=== PATIENT | male | born 1950 | race Caucasian/White ===

== ENCOUNTER 2018-02-21 19:32 | Inpatient (IN) | payer OTHER ==
--- NOTE | 2018-02-21 20:17 | PDOC ---
History of Present Illness <Scar Griffin - Last Filed: 02/21/18 21:49> - General History Source: Patient, Family (nephew) Exam Limitations: No Limitations - History of Present Illness Initial Comments: 02/21/18 21:01 The patient is a 67 year old male with history of alcohol dependence, cirrhosis who presents to the ED with a laceration to his occipital scalp. The patient is accompanied by his nephew at bedside. Nephew reports that the patient has a history of alcohol abuse. This evening he became intoxicated and fell, hitting the back of his head. No loss of consciousness. Patient is intoxicated and unable to provide remainder of history. <Ariela Townsend - Last Filed: 02/22/18 01:14> <Shyla Abbott - Last Filed: 02/22/18 17:26> - General Chief Complaint: Alcohol intoxication Stated Complaint: HEAD LACERATION Time Seen by Provider: 02/21/18 19:45 Past History <Scar Griffin - Last Filed: 02/21/18 21:49> <Ariela Townsend - Last Filed: 02/22/18 01:14> - Past Medical History COPD: No Psychiatric Problems: Yes (DEPRESSION) Other medical history: HEP C - Suicide/Smoking/Psychosocial Hx Smoking History: Current every day smoker Number of Cigarettes Smoked Daily: 20 Information on smoking cessation initiated: No Hx Alcohol Use: Yes (vodka) Drug/Substance Use Hx: No <Shyla Abbott - Last Filed: 02/22/18 17:26> - Past Medical History Allergies/Adverse Reactions: Allergies Allergy/AdvReac Type Severity Reaction Status Date / Time No Known Allergies Allergy Verified 02/21/18 19:37 Home Medications: Ambulatory Orders NK [No Known Home Medication] 02/22/18 Review of Systems - Review of Systems Able to Perform ROS?: No Comments:: 02/21/18 21:04 Patient is intoxicated and unable to provide ROS. <Ariela Towsnend - Last Filed: 02/22/18 01:14> *Physical Exam - Vital Signs Last Vital Signs Temp Pulse Resp BP Pulse Ox 80 16 126/78 97 02/21/18 19:37 02/21/18 19:37 02/21/18 19:37 02/21/18 19:37 <Scar Griffin - Last Filed: 02/21/18 21:49> - Vital Signs Last Vital Signs Temp Pulse Resp BP Pulse Ox 80 16 126/78 97 02/21/18 19:37 02/21/18 19:37 02/21/18 19:37 02/21/18 19:37 - Physical Exam Comments: 02/22/18 01:10 GENERAL: Awake, clinically intoxicated. HEAD: Laceration as noted in SKIN. EYES: PERRLA, EOMI, sclera anicteric, conjunctiva clear ENT: Auricles normal inspection, nares patent. Moist mucosa NECK: Normal ROM, supple, no JVD, or masses LUNGS: Breath sounds equal, clear to auscultation bilaterally. No wheezes, and no crackles HEART: Regular rate and rhythm, normal S1 and S2, no murmurs, rubs or gallops ABDOMEN: Soft, nontender, normoactive bowel sounds. No guarding, no rebound. No masses EXTREMITIES: Normal range of motion, no edema. No clubbing or cyanosis. No cords, erythema, or tenderness NEUROLOGICAL: Alert and oriented x 3. Face is symmetric. Unsteady gait, but able to move all extremities. SKIN: Warm, Dry, normal turgor. +7.5 cm superficial laceration to the occipital scalp. <Ariela Townsend - Last Filed: 02/22/18 01:14> - Vital Signs Last Vital Signs Temp Pulse Resp BP Pulse Ox 80 16 126/78 97 02/21/18 19:37 02/21/18 19:37 02/21/18 19:37 02/21/18 19:37 <Shyla Abbott - Last Filed: 02/22/18 17:26> Procedures - Laceration/Wound Repair Head Wound Length: 5.0 to 7.5 cm Wound Explored: clean Wound's Depth, Shape: superficial Irrigated w/ Saline: Yes Betadine Prep: No Wound Repaired With: [place] Number of Sutures: 11 <Scar Griffin - Last Filed: 02/21/18 21:49> Medical Decision Making - Medical Decision Making 02/21/18 22:[address], read and reviewed by Dr. Nash. Impression: 1. No acute intracranial hemorrhage, mass effect, hydrocephalus or calvarial fracture. 2. Chronic right maxillary sinus disease as described. Laceration repair by resident Scar Griffin. Patient left stretcher and experienced another fall. Will administer 5 Haldol and 2 Ativan. <Ariela Townsend - Last Filed: 02/22/18 01:14> - Medical Decision Making 02/21/18 20:43 67-year-old male brought in by ambulance for intoxication and scalp laceration. He is accompanied by his nephew who states he has a long history of alcoholism. Patient lives in an apt Past medical history hepatitis C Patient has a large occipital laceration and is intoxicated Patient has had, closure of scalp laceration 02/21/18 21:45 CAT scan of the head is negative for any acute intracranial pathology. There are NO signs of acute infarction, subdural hematoma or hemorrhage, mass effect or edema 02/21/18 23:44 -the patient had another fall in his room. It was a witnessed fall onto his buttocks. This time he fell on his buttocks, but did not hit his head. He is too inebriated to be discharged at this time and will be kept until it was safe to go home <Shyla Abbott - Last Filed: 02/22/18 17:26> *DC/Admit/Observation/Transfer <Scar Griffin - Last Filed: 02/21/18 21:49> - Attestations Scribe Attestion: 02/21/18 21:04 Documentation prepared by Ariela Townsend, acting as medical receptionist biller for Shyla Abbott MD. <Ariela Townsend - Last Filed: 02/22/18 01:14> <Shyla Abbott - Last Filed: 02/22/18 17:26> Diagnosis at time of Disposition: Fall, Head injury - Discharge Dispostion Condition at time of disposition: Stable
[2018-02-21] MEDS ORDERED: HALOPERIDOL LACTATE 5 MG/ML IM ONE (21:58)
[2018-02-21] MEDS ORDERED: HALOPERIDOL LACTATE 5 MG/ML ONE (22:05)
[2018-02-21] MEDS ORDERED: LORazepam 2 MG/ML SDV VIAL ONE (22:06)
--- NOTE | 2018-02-22 06:14 | PDOC ---
*Physical Exam - Vital Signs Last Vital Signs Temp Pulse Resp BP Pulse Ox 80 16 126/78 97 02/21/18 19:37 02/21/18 19:37 02/21/18 19:37 02/21/18 19:37 ED Treatment Course - Medications Given in the ED: ED Medications Discontinued Medications Generic Name Dose Route Start Last Admin Trade Name Radhika PRN Reason Stop Dose Admin Diphenhydramine HCl 25 mg 02/21/18 21:59 02/21/18 22:08 Benadryl Injection - IM 02/21/18 22:00 25 mg ONCE ONE Administration Haloperidol 5 mg 02/21/18 21:58 02/21/18 22:08 Haldol Injection (Fast Acting) - IM 02/21/18 21:59 5 mg ONCE ONE Administration Lorazepam 2 mg 02/21/18 21:58 02/21/18 22:08 Ativan Injection - IM 02/21/18 21:59 2 mg ONCE ONE Administration Medical Decision Making - Medical Decision Making 02/22/18 06:12 Pt reassessed. He feels more sober and alert now. Pt has 11 demetri. I had called the patient's nephew Guille who states that he will sweet pickled fruit maker the patient around 10 am. 02/22/18 06:14 Will sign out to Dr. Garcia for further management and disposition. *DC/Admit/Observation/Transfer Diagnosis at time of Disposition: Fall Qualifiers: Encounter type: initial encounter Qualified Code(s): W19.XXXA - Unspecified fall, initial encounter Head injury Qualifiers: Encounter type: initial encounter Qualified Code(s): S09.90XA - Unspecified injury of head, initial encounter - Discharge Dispostion Condition at time of disposition: Stable Admit: No - Referrals - Patient Instructions Printed Discharge Instructions: DI for Closed Head Injury, DI for Laceration Repair -- Demetri Additional Instructions: You have had a CAT scan that showed no acute bleeding. 11 demetri was placed in the scalp. You may shower but do not scrub the wound. Allow warm soapy water to run over the wound. Please return to the emergency department in 7 days to remove the demetri. If he notices any fever or pus from the laceration site, please return to the emergency department for further evaluation. - Post Discharge Activity
--- NOTE | 2018-02-22 08:21 | PDOC ---
*Physical Exam - Vital Signs Last Vital Signs Temp Pulse Resp BP Pulse Ox 97.7 F 77 18 131/62 97 02/22/18 06:20 02/22/18 06:20 02/22/18 06:20 02/22/18 06:20 02/22/18 06:20 - Physical Exam Comments: 02/22/18 08:20 Vital signs normal Asleep now after medications Scalp laceration repaired Cardiopulmonary exam is normal ED Treatment Course - Medications Given in the ED: ED Medications Discontinued Medications Generic Name Dose Route Start Last Admin Trade Name Radhika PRN Reason Stop Dose Admin Diphenhydramine HCl 25 mg 02/21/18 21:59 02/21/18 22:08 Benadryl Injection - IM 02/21/18 22:00 25 mg ONCE ONE Administration Haloperidol 5 mg 02/21/18 21:58 02/21/18 22:08 Haldol Injection (Fast Acting) - IM 02/21/18 21:59 5 mg ONCE ONE Administration Lorazepam 2 mg 02/21/18 21:58 02/21/18 22:08 Ativan Injection - IM 02/21/18 21:59 2 mg ONCE ONE Administration Medical Decision Making - Medical Decision Making 02/22/18 08:20 Received signout on this 67-year-old male who presented with severe intoxication , aggressive behavior requiring restraints. CT head showed no TBI, scalp laceration was repaired. Patient remains hemodynamically stable and slowly clinically improving/sobering , awaiting disposition with his family later this morning. We'll place patient on observation to continue monitoring alcohol intoxication and closed head injury, accepted for med/surg by Dr. Sanders. 02/22/18 10:34 ambulating more steadily, clinically sober. will arrange for pickup by family members. 02/22/18 11:17 now developing sxs of withdrawal, b/l hand tremors, unable to stand requiring assistance just to get dressed at the bedside. discussed with nephew - has had worsening gait instability but this is markedly worse over the last few days. Will need admission as not medically cleared for detox. Discussed with [facility] team, accepted for inpatient med/surg by Dr. sanders *DC/Admit/Observation/Transfer Diagnosis at time of Disposition: Fall Qualifiers: Encounter type: initial encounter Qualified Code(s): W19.XXXA - Unspecified fall, initial encounter Head injury Qualifiers: Encounter type: initial encounter Qualified Code(s): S09.90XA - Unspecified injury of head, initial encounter - Discharge Dispostion Condition at time of disposition: Stable Admit: Yes - Referrals - Patient Instructions - Post Discharge Activity
--- NOTE | 2018-02-22 08:53 | HP ---
CHIEF COMPLAINT: "i fell" PCP: HISTORY OF PRESENT ILLNESS: This is a 67 yo m with PMH of EtOH abuse, Hep C, cirrhosis, depression, who presented to the ED in an intoxicated disorderly state, with an occipital scalp laceration. Patients nephew at the time reported that he fell backwards, hitting his head. Due to violent behavior, patient was medically sedated in ED. Head CT was negative for acute pathology. He received demetri to close his wound. He is now aao x3, NAD. He states that he drank a pint of vodka last night and remembers falling. he drinks several times a week. He recognizes that he needs to quit and has attempted rehab before, however, wants to go directly home and does not wist ho go to rehab right away. ER course was notable for: (1)head ct (2)laceration repair (3)benadryl, griseldal, ativan Recent Travel: denies PAST MEDICAL HISTORY: as above PAST SURGICAL HISTORY: as above Social History: Smokin cigs/day Alcohol: 1 pint vodka 3 days a week Drugs: denies Family History: noncontributory Allergies No Known Allergies Allergy (Verified 02/21/18 19:37) HOME MEDICATIONS: Home Medications Medication Instructions Recorded NK [No Known Home Medication] 02/22/18 REVIEW OF SYSTEMS CONSTITUTIONAL: Absent: fever, chills, diaphoresis, generalized weakness HEENT: Absent: rhinorrhea, nasal congestion, throat pain, visual changes CARDIOVASCULAR: Absent: chest pain, syncope, palpitations RESPIRATORY: Absent: cough, shortness of breath, dyspnea with exertion GASTROINTESTINAL: Absent: abdominal pain, abdominal distension, nausea, vomiting, diarrhea, constipation GENITOURINARY: Absent: dysuria MUSCULOSKELETAL: Absent: back pain, neck pain SKIN: Absent: rash HEMATOLOGIC/IMMUNOLOGIC: Absent: easy bleeding, easy bruising ENDOCRINE: Absent: unexplained weight gain, unexplained weight loss NEUROLOGIC: Absent: headache, focal weakness or paresthesias PSYCHIATRIC: Absent: anxiety PHYSICAL EXAMINATION Vital Signs - 24 hr 02/21/18 02/22/18 19:37 06:20 Temperature 97.7 F Pulse Rate 80 Pulse Rate [ 77 Left Apical] Respiratory 16 18 Rate Blood Pressure 126/78 Blood Pressure 131/62 [Right Arm] O2 Sat by Pulse 97 97 Oximetry (%) GENERAL: Awake, alert, and fully oriented, in no acute distress. HEAD: Normal with no signs of trauma. EYES: Pupils equal, round and reactive to light, extraocular movements intact, sclera anicteric, conjunctiva clear. No lid lag. EARS, NOSE, THROAT: Moist mucous membranes. NECK: Normal range of motion, supple LUNGS: Breath sounds equal, clear to auscultation bilaterally. HEART: Regular rate and rhythm, normal S1 and S2, grade 3 systolic murmur ABDOMEN: Soft, nontender, not distended, normoactive bowel sounds, no guarding, no rebound, no masses. MUSCULOSKELETAL: No CVA tenderness. UPPER EXTREMITIES: 2+ pulses, warm, well-perfused. No cyanosis. No clubbing. No peripheral edema. LOWER EXTREMITIES: 2+ pulses, warm, well-perfused. No calf tenderness. No peripheral edema. NEUROLOGICAL: Cranial nerves II-XII intact. Normal speech. PSYCHIATRIC: Cooperative. Good eye contact. Appropriate mood and affect. SKIN: Warm, dry ASSESSMENT/PLAN: This is a 67 yo m with PMH of EtOH abuse, Hep C, cirrhosis, depression, who presented to the ED in an intoxicated disorderly state, with an occipital scalp laceration. Acute EtOH intoxication -currently sober -and cessation counseling; recommended detox/rehab especially in setting of present cirrhosis Occipital scalp laceration -CT head unremarkable for acute pathology -s/p repair with demetri -f/u in 2 w with PCP to remove demetri Smoker -recommend cessation Dispo: stable to d/c home. Problem List - Problem (1) Acute alcohol intoxication Code(s): F10.929 - ALCOHOL USE, UNSPECIFIED WITH INTOXICATION, UNSPECIFIED (2) Alcohol abuse Code(s): F10.10 - ALCOHOL ABUSE, UNCOMPLICATED (3) Alcohol abuse counseling and surveillance Code(s): Z71.41 - ALCOHOL ABUSE COUNSELING AND SURVEILLANCE OF ALCOHOLIC (4) Fall Code(s): W19.XXXA - UNSPECIFIED FALL, INITIAL ENCOUNTER Qualifiers: Encounter type: initial encounter Qualified Code(s): W19.XXXA - Unspecified fall, initial encounter (5) Head injury Code(s): S09.90XA - UNSPECIFIED INJURY OF HEAD, INITIAL ENCOUNTER Qualifiers: Encounter type: initial encounter Qualified Code(s): S09.90XA - Unspecified injury of head, initial encounter Visit type - Emergency Visit Emergency Visit: Yes ED Registration Date: 02/22/18 Care time: The patient presented to the Emergency Department on the above date and was hospitalized for further evaluation of their emergent condition. - New Patient This patient is new to me today: Yes Date on this admission: 02/22/18 - Critical Care Critical Care patient: No Hospitalist Screening - Colonoscopy Questionnaire Colonoscopy Questionnaire: Colonoscopy Questionnaire - Patient: 50 - 75 years old and never had a screening colonoscopy: Yes History of colon or rectal polyps, or CA: No History of IBD, Crohn's disease or UC: No History of abdominal radiation therapy as a child: No - Relative: 1 with colon or rectal CA, or polyps at age 60 or younger: No Colon or rectal CA diagnosed at age 45 or younger: No Multiple relatives with colon or rectal CA: No - Outcome: Screening Result: Positive Screen
--- NOTE | 2018-02-22 10:14 | PN ---
Teaching Attending Note Name of Resident: Betzaida Bingham ATTENDING PHYSICIAN STATEMENT I saw and evaluated the patient. I reviewed the resident's note and discussed the case with the resident. I agree with the resident's findings and plan as documented. SUBJECTIVE: This is a 67 year old man with a history of cirrhosis, alcohol abuse , hepatitis C, depression who comes to the ED after falling and hitting his head. As per family, while he was intoxicated, he fell backwards. He hit his head sustaining a laceration which was stapled in the ED. He admits to drinking one pint of vodka last night, and to drinking several times a week. He is currently refusing detox/rehab. OBJECTIVE: Vital Signs Period Temp Pulse Resp BP Sys/Suggs Pulse Ox Last 24 Hr 97.7 F 77-81 15-18 126-131/62-81 97-99 HEART: S1S2, RRR LUNGS: Clear ABDOMEN: Soft, non-tender, non-distended, normal BS EXTREMITIES: No edema Home Medications Medication Instructions Recorded NK [No Known Home Medication] 02/22/18 ASSESSMENT AND PLAN: This is a 67 year old man with a history of cirrhosis, alcohol abuse, hepatitis C, depression who presented to the ED after falling and hitting his head while intoxicated. 1. Alcohol intoxication - Resolved 2. s/p fall with occipital scalp laceration - Laceration stapled - Head CT negative 3. Continuous alcohol dependence - No signs of withdrawal - Abstinence discussed - Refusing detox/rehab 4. Nicotine dependence - Cessation discussed 5. Cirrhosis 6. Hepatitis C 7. Depression 8. Ok for discharge home with outpatient follow-up
--- NOTE | 2018-02-22 10:39 | DS ---
Physical Exam: SUBJECTIVE: Patient seen and examined Patient resting in bed NAD, afebrile hemodynamically stable. AAOx3, no complaints. OBJECTIVE: Vital Signs Period Temp Pulse Resp BP Sys/Suggs Pulse Ox Last 24 Hr 97.7 F 77-81 15-18 126-131/62-81 97-99 PHYSICAL EXAM GENERAL: Awake, alert, and fully oriented, in no acute distress. HEAD: Normal with no signs of trauma. EYES: Pupils equal, round and reactive to light, extraocular movements intact, sclera anicteric, conjunctiva clear. No lid lag. EARS, NOSE, THROAT: Moist mucous membranes. NECK: Normal range of motion, supple LUNGS: Breath sounds equal, clear to auscultation bilaterally. HEART: Regular rate and rhythm, normal S1 and S2, grade 3 systolic murmur ABDOMEN: Soft, nontender, not distended, normoactive bowel sounds, no guarding, no rebound, no masses. MUSCULOSKELETAL: No CVA tenderness. UPPER EXTREMITIES: 2+ pulses, warm, well-perfused. No cyanosis. No clubbing. No peripheral edema. LOWER EXTREMITIES: 2+ pulses, warm, well-perfused. No calf tenderness. No peripheral edema. NEUROLOGICAL: Cranial nerves II-XII intact. Normal speech. PSYCHIATRIC: Cooperative. Good eye contact. Appropriate mood and affect. SKIN: Warm, dry LABS HOSPITAL COURSE: Date of Admission:02/22/18 This is a 67 yo m with PMH of EtOH abuse, Hep C, cirrhosis, depression, who presented to the ED in an intoxicated disorderly state, with an occipital scalp laceration. Patients nephew at the time reported that he fell backwards, hitting his head. Due to violent behavior, patient was medically sedated in ED. Head CT was negative for acute pathology. He received demetri to close his wound. He is now aao x3, NAD. He recognizes that he needs to quit and has attempted rehab before, however, wants to go directly home and does not wist ho go to rehab right away. Date of Discharge: 02/22/18 Minutes to complete discharge: 35 Discharge Summary Reason For Visit: ALCOHOLIC INTOXICATION,INJURY OF HEAD Current Active Problems Acute alcohol intoxication (Acute) Alcohol abuse (Acute) Alcohol abuse counseling and surveillance (Acute) Fall (Acute) Head injury (Acute) Condition: Stable - Instructions Diet, Activity, Other Instructions: You have had a CAT scan that showed no acute bleeding. 11 demetri was placed in the scalp. You may shower but do not scrub the wound. Allow warm soapy water to run over the wound. Please return to the emergency department in 7 days to remove the demetri. If he notices any fever or pus from the laceration site, please return to the emergency department for further evaluation. We recommend that you refer to Rehab for alcohol cessation. [facility], Dr Kohler. Referrals: Sahil Kohler MD [Staff Physician] - Disposition: HOME - Home Medications Comprehensive Discharge Medication List: Ambulatory Orders NK [No Known Home Medication] 02/22/18 Problem List - Problems (1) Acute alcohol intoxication Code(s): F10.929 - ALCOHOL USE, UNSPECIFIED WITH INTOXICATION, UNSPECIFIED (2) Alcohol abuse Code(s): F10.10 - ALCOHOL ABUSE, UNCOMPLICATED (3) Alcohol abuse counseling and surveillance Code(s): Z71.41 - ALCOHOL ABUSE COUNSELING AND SURVEILLANCE OF ALCOHOLIC (4) Fall Code(s): W19.XXXA - UNSPECIFIED FALL, INITIAL ENCOUNTER Qualifiers: Encounter type: initial encounter Qualified Code(s): W19.XXXA - Unspecified fall, initial encounter (5) Head injury Code(s): S09.90XA - UNSPECIFIED INJURY OF HEAD, INITIAL ENCOUNTER Qualifiers: Encounter type: initial encounter Qualified Code(s): S09.90XA - Unspecified injury of head, initial encounter This patient is new to me today: No Emergency Visit: Yes ED Registration Date: 02/22/18 Care time: The patient presented to the Emergency Department on the above date and was hospitalized for further evaluation of their emergent condition. Critical Care patient: No - Discharge Referral Referred to [facility] Med P.C.: No
[2018-02-22 10:44] VITALS: BMI 23.0
[2018-02-22] MEDS ORDERED: chlordiazePOXIDE HCL 25 MG CAPSULE PO ONE (11:21)
--- NOTE | 2018-02-22 11:28 | HP ---
CHIEF COMPLAINT: "i fell" PCP: HISTORY OF PRESENT ILLNESS: This is a 67 yo m with PMH of EtOH abuse, Hep C, cirrhosis, depression, who presented to the ED in an intoxicated disorderly state, with an occipital scalp laceration. Patients nephew at the time reported that he fell backwards, hitting his head. Due to violent behavior, patient was medically sedated in ED. Head CT was negative for acute pathology. He received demetri to close his wound. He is now aao x3, NAD. He states that he drank a pint of vodka last night and remembers falling. he drinks several times a week. He recognizes that he needs to quit and has attempted rehab before. Reports some tremors, diaphoresis. ER course was notable for: (1)head ct (2)laceration repair (3)daija victoria atcaesar Recent Travel: denies PAST MEDICAL HISTORY: as above PAST SURGICAL HISTORY: as above Social History: Smokin cigs/day Alcohol: 1 pint vodka 3 days a week Drugs: denies Family History: noncontributory Allergies No Known Allergies Allergy (Verified 02/21/18 19:37) HOME MEDICATIONS: Home Medications Medication Instructions Recorded NK [No Known Home Medication] 02/22/18 REVIEW OF SYSTEMS CONSTITUTIONAL: Absent: fever, chills, diaphoresis, generalized weakness HEENT: Absent: rhinorrhea, nasal congestion, throat pain, visual changes CARDIOVASCULAR: Absent: chest pain, syncope, palpitations RESPIRATORY: Absent: cough, shortness of breath, dyspnea with exertion GASTROINTESTINAL: Absent: abdominal pain, abdominal distension, nausea, vomiting, diarrhea, constipation GENITOURINARY: Absent: dysuria MUSCULOSKELETAL: Absent: back pain, neck pain SKIN: Absent: rash HEMATOLOGIC/IMMUNOLOGIC: Absent: easy bleeding, easy bruising ENDOCRINE: Absent: unexplained weight gain, unexplained weight loss NEUROLOGIC: Absent: headache, focal weakness or paresthesias PSYCHIATRIC: Absent: anxiety PHYSICAL EXAMINATION Vital Signs - 24 hr 02/21/18 02/22/18 02/22/18 19:37 06:20 09:54 Temperature 97.7 F Pulse Rate 80 Pulse Rate [ 77 81 Left Apical] Respiratory 16 18 15 Rate Blood Pressure 126/78 Blood Pressure 131/62 130/81 [Right Arm] O2 Sat by Pulse 97 97 99 Oximetry (%) GENERAL: Awake, alert, and fully oriented, in no acute distress. HEAD: Normal with no signs of trauma. EYES: Pupils equal, round and reactive to light, extraocular movements intact, sclera anicteric, conjunctiva clear. No lid lag. EARS, NOSE, THROAT: Moist mucous membranes. NECK: Normal range of motion, supple LUNGS: Breath sounds equal, clear to auscultation bilaterally. HEART: Regular rate and rhythm, normal S1 and S2, grade 3 systolic murmur ABDOMEN: Soft, nontender, not distended, normoactive bowel sounds, no guarding, no rebound, no masses. MUSCULOSKELETAL: No CVA tenderness. UPPER EXTREMITIES: 2+ pulses, warm, well-perfused. No cyanosis. No clubbing. No peripheral edema. LOWER EXTREMITIES: 2+ pulses, warm, well-perfused. No calf tenderness. No peripheral edema. NEUROLOGICAL: Cranial nerves II-XII intact. Normal speech. PSYCHIATRIC: Cooperative. Good eye contact. Appropriate mood and affect. SKIN: Warm, dry ASSESSMENT/PLAN: This is a 67 yo m with PMH of EtOH abuse, Hep C, cirrhosis, depression, who presented to the ED in an intoxicated disorderly state, with an occipital scalp laceration. Acute EtOH intoxication, now in withdrawal -[facility] protocol -thiamine, folate, vitamins -Dr Kohler consult -cessation counseling; recommended detox/rehab especially in setting of present cirrhosis Occipital scalp laceration -CT head unremarkable for acute pathology -s/p repair with demetri -f/u in 2 w with PCP to remove demetri Smoker -recommend cessation FEN NS @ 75 lyts stable regular diet Dispo: adm m/s Problem List - Problem (1) Acute alcohol intoxication Code(s): F10.929 - ALCOHOL USE, UNSPECIFIED WITH INTOXICATION, UNSPECIFIED (2) Alcohol abuse Code(s): F10.10 - ALCOHOL ABUSE, UNCOMPLICATED (3) Alcohol abuse counseling and surveillance Code(s): Z71.41 - ALCOHOL ABUSE COUNSELING AND SURVEILLANCE OF ALCOHOLIC (4) Fall Code(s): W19.XXXA - UNSPECIFIED FALL, INITIAL ENCOUNTER Qualifiers: Encounter type: initial encounter Qualified Code(s): W19.XXXA - Unspecified fall, initial encounter (5) Head injury Code(s): S09.90XA - UNSPECIFIED INJURY OF HEAD, INITIAL ENCOUNTER Qualifiers: Encounter type: initial encounter Qualified Code(s): S09.90XA - Unspecified injury of head, initial encounter (6) Alcohol withdrawal Code(s): F10.239 - ALCOHOL DEPENDENCE WITH WITHDRAWAL, UNSPECIFIED Visit type - Emergency Visit Emergency Visit: Yes ED Registration Date: 02/22/18 Care time: The patient presented to the Emergency Department on the above date and was hospitalized for further evaluation of their emergent condition. - New Patient This patient is new to me today: No - Critical Care Critical Care patient: No Hospitalist Screening - Colonoscopy Questionnaire Colonoscopy Questionnaire: Colonoscopy Questionnaire - Patient: 50 - 75 years old and never had a screening colonoscopy: No History of colon or rectal polyps, or CA: No History of IBD, Crohn's disease or UC: No History of abdominal radiation therapy as a child: No - Relative: 1 with colon or rectal CA, or polyps at age 60 or younger: No Colon or rectal CA diagnosed at age 45 or younger: No Multiple relatives with colon or rectal CA: No - Outcome: Screening Result: Negative Screen
[2018-02-22] MEDS ORDERED: chlordiazePOXIDE HCL 25 MG CAPSULE PO PRN (11:33)
[2018-02-22] MEDS ORDERED: LORazepam 2 MG/ML SDV VIAL ONE (11:41)
[2018-02-22] MEDS: chlordiazePOXIDE HCL 25 MG CAPSULE PO SCH ×2 (12:01→17:34)
[2018-02-22] MEDS ORDERED: FOLIC ACID INJECTION - 1 MG, THIAMINE HCL 100 MG, MULTIVIT INJECTION ADULT 10 ML in SOD... IVPB ONE (12:30)
--- NOTE | 2018-02-22 14:33 | CONSULT ---
Consult Detox [facility] Reason for Current Admission/Consult: substance use Referred by:: krystina galvan - History History of Present Illness: 67 yo m w PMHx of alcoho use disorder, severe, was in treatment at [facility] in past, Hep C, cirrhosis, depression, who presented to the ED in an intoxicated with an occipital scalp laceration and admitted for inpateint detoxification from alcohol. drinks 1 pint alcohol daily and reports alcohol withdrwal sx when he deos not drink, no h/o seiaures, no DTs no SI at this time. tolerating libirum detox as ordered. Vital Signs - 24 hr 02/22/18 02/22/18 02/22/18 15:20 16:32 20:00 Temperature 97.6 F 98.2 F Pulse Rate 83 80 Pulse Rate [ 84 Right] Respiratory 18 18 18 Rate Blood Pressure 139/75 139/80 Blood Pressure 135/84 [Right Arm] O2 Sat by Pulse 99 Oximetry (%) 02/22/18 02/23/18 02/23/18 22:00 02:00 06:09 Temperature 98.3 F 98.4 F Pulse Rate 92 H 90 Pulse Rate [ Right] Respiratory 18 18 Rate Blood Pressure 133/58 Blood Pressure [Right Arm] O2 Sat by Pulse 98 Oximetry (%) 02/23/18 02/23/18 02/23/18 09:00 09:27 14:00 Temperature 98.7 F 98.7 F Pulse Rate 95 H Pulse Rate [ Right] Respiratory 18 Rate Blood Pressure 155/76 Blood Pressure [Right Arm] O2 Sat by Pulse 97 Oximetry (%) Laboratory Tests 02/23/18 02/23/18 02/23/18 07:45 07:45 07:45 WBC 3.1 L RBC 2.41 L Hgb 7.9 L Hct 23.1 L MCV 96.0 MCH 32.9 MCHC 34.2 RDW 16.7 H Plt Count 92 L MPV 9.3 PT with INR 13.20 H INR 1.17 H Sodium 138 Potassium 3.4 L Chloride 103 Carbon Dioxide 27 Anion Gap 8 BUN 19 H Creatinine 0.7 Creat Clearance w eGFR > 60 Random Glucose 97 Calcium 8.4 L Phosphorus 3.0 Magnesium 1.4 L Total Bilirubin 1.2 H AST 115 H ALT 44 Alkaline Phosphatase 102 Total Protein 6.8 Albumin 2.7 L Vitamin B12 Serum Folate 12 02/23/18 07:45 WBC RBC Hgb Hct MCV MCH MCHC RDW Plt Count MPV PT with INR INR Sodium Potassium Chloride Carbon Dioxide Anion Gap BUN Creatinine Creat Clearance w eGFR Random Glucose Calcium Phosphorus Magnesium Total Bilirubin AST ALT Alkaline Phosphatase Total Protein Albumin Vitamin B12 701 Serum Folate anemia, hypokalemia, hypomagensemia - History Source History Provided By: Patient, Medical Record, Caregiver Limitations to Obtaining History: No Limitations - Alcohol/Substance Use Hx Alcohol Use: Yes (vodka) - Current Drug/Alcohol Use Alcohol Route: Oral Frequency: Daily Amount used: 1 pint vodka Age of first use: 20 Date of Last Use: 02/21/18 - Significant Medical Findings: 67 yo m with h/o alcoho use diorder admitted intoxicted after a fall lacerating his scalp for ipatient medical detox from alcohol beause of alcohol withdrawal sx which he is tolerating well. CIWA Score - CIWA Score Nausea/Vomitin-Mild Nausea/No Vomiting Muscle Tremors: 1-None Visible, but [place] Anxiety: 1-Mildly Anxious Agitation: 0-Normal Activity Paroxysmal Sweats: 1-Minimal Palms Moist Orientation: 0-Oriented Tacttile Disturbances: 1-Very Mild Itch/Numbness Auditory Disturbances: 0-None Visual Disturbances: 0-None Headache: 1-Very Mild CIWA-Ar Total Score: 6 Assessment Plan - Diagnosis (1) Anemia Status: Chronic (2) Hypokalemia Status: Resolved (3) Hypomagnesemia Status: Resolved (4) Acute alcohol intoxication Status: Deleted (5) Alcohol abuse counseling and surveillance Status: Deleted (6) Alcohol dependence with uncomplicated withdrawal Status: Chronic (7) Fall Status: Acute Qualifiers: Encounter type: initial encounter Qualified Code(s): W19.XXXA - Unspecified fall, initial encounter (8) Head injury Status: Acute Qualifiers: Encounter type: initial encounter Qualified Code(s): S09.90XA - Unspecified injury of head, initial encounter - Plan Plan: chrt, imaging and labs reviewd. Paeint examined and hisotry taken. discussed care with medical team. REcommend: 1. libirum detox as ordered 2. fluid, vitamines. 3. anemia work up 4. patient does not appear to want inpatient rehab and former [facility] where he would liek to return to., not a candidate for [facility] due to his medical condition and does not appear able to participate in rehab at this time post detox. Sahil Kohler MD [phone] - Medication Detox Regimen/Protocol: Librium
[2018-02-23] MEDS: chlordiazePOXIDE HCL 25 MG CAPSULE PO SCH ×5 (00:19→22:33)
[2018-02-23 08:27] LABS: HEMATOCRIT 23.1 % (35.4-49); HEMOGLOBIN 7.9 GM/dL (11.7-16.9); MCH 32.9 pg (25.7-33.7); MCHC 34.2 g/dl (32.0-35.9); MEAN PLT VOLUME 9.3 fl (7.5-11.1); PLATELET COUNT 92 K/MM3 (134-434); RBC 2.41 M/mm3 (4.00-5.60); RDW 16.7 % (11.9-15.9); WHITE BLOOD COUNT 3.1 K/mm3 (4.0-10.0)
[2018-02-23 08:43] LABS: INR 1.17 (0.82-1.09); PROTHROMBIN TIME (PATIENT) 13.2 SEC (9.98-11.88)
[2018-02-23 08:57] LABS: ALBUMIN 2.7 g/dl (3.4-5.0); ANION GAP 8 (8-16); BILIRUBIN,TOTAL 1.2 mg/dL (0.2-1.0); BLOOD UREA NITROGEN 19 mg/dL (7-18); CALCIUM 8.4 mg/dL (8.5-10.1); CHLORIDE 103 mmol/L (98-107); CO2 27 mmol/L (21-32); CREATININE 0.7 mg/dL (0.7-1.3); GLUCOSE,RANDOM 97 mg/dL (74-106); MAGNESIUM 1.4 mg/dL (1.8-2.4); POTASSIUM 3.4 mmol/L (3.5-5.1); SGOT/AST 115 U/L (15-37); SGPT/ALT 44 U/L (12-78); SODIUM 138 mmol/L (136-145); TOT PROT 6.8 g/dl (6.4-8.2)
[2018-02-23 09:22] LABS: ALK PHOS 102 U/L (45-117)
[2018-02-23] MEDS ORDERED: ENOXAPARIN NA (PORCINE) 40 MG/0.4 ML DISP.SYRIN SQ SCH (10:00)
[2018-02-23] MEDS ORDERED: POTASSIUM CHLORIDE TABS 20 MEQ TABLET.ER (FP) PO ONE (11:00)
[2018-02-23] MEDS ORDERED: MAGNESIUM OXIDE 400 MG TABLET (FP) PO ONE (11:00)
--- NOTE | 2018-02-23 13:46 | PN ---
Physical Exam: SUBJECTIVE: Patient seen and examined No acute events overnight. Denies pain this morning. OBJECTIVE: Vital Signs Period Temp Pulse Resp BP Sys/Suggs Pulse Ox Last 24 Hr 97.6 F-98.7 F 80-95 18-18 133-155/58-84 97-99 GENERAL: Awake, alert, and fully oriented, in no acute distress. HEAD: Normal with no signs of trauma. +Scalp laceration EYES: Pupils equal, round and reactive to light, extraocular movements intact, sclera anicteric, conjunctiva clear. No lid lag. EARS, NOSE, THROAT: Moist mucous membranes. NECK: Normal range of motion, supple LUNGS: Breath sounds equal, clear to auscultation bilaterally. HEART: Regular rate and rhythm, normal S1 and S2, grade 3 systolic murmur ABDOMEN: Soft, nontender, not distended, normoactive bowel sounds, no guarding, no rebound, no masses. MUSCULOSKELETAL: No CVA tenderness. UPPER EXTREMITIES: 2+ pulses, warm, well-perfused. No cyanosis. No clubbing. No peripheral edema. LOWER EXTREMITIES: 2+ pulses, warm, well-perfused. No calf tenderness. No peripheral edema. NEUROLOGICAL: Cranial nerves II-XII intact. Normal speech. PSYCHIATRIC: Cooperative. Good eye contact. Appropriate mood and affect. SKIN: Warm, dry Laboratory Results - last 24 hr 02/23/18 02/23/18 02/23/18 07:45 07:45 07:45 WBC 3.1 L RBC 2.41 L Hgb 7.9 L Hct 23.1 L MCV 96.0 MCH 32.9 MCHC 34.2 RDW 16.7 H Plt Count 92 L MPV 9.3 PT with INR 13.20 H INR 1.17 H Sodium 138 Potassium 3.4 L Chloride 103 Carbon Dioxide 27 Anion Gap 8 BUN 19 H Creatinine 0.7 Creat Clearance w eGFR > 60 Random Glucose 97 Calcium 8.4 L Phosphorus 3.0 Magnesium 1.4 L Total Bilirubin 1.2 H AST 115 H ALT 44 Alkaline Phosphatase 102 Total Protein 6.8 Albumin 2.7 L Vitamin B12 Serum Folate 12 02/23/18 07:45 WBC RBC Hgb Hct MCV MCH MCHC RDW Plt Count MPV PT with INR INR Sodium Potassium Chloride Carbon Dioxide Anion Gap BUN Creatinine Creat Clearance w eGFR Random Glucose Calcium Phosphorus Magnesium Total Bilirubin AST ALT Alkaline Phosphatase Total Protein Albumin Vitamin B12 701 Serum Folate Active Medications Generic Name Dose Route Start Last Admin Trade Name Freq PRN Reason Stop Dose Admin Chlordiazepoxide HCl 25 mg 02/22/18 11:33 Librium - PO Q4H PRN WITHDRAWAL(CONT SUBST) Chlordiazepoxide HCl 25 mg 02/23/18 11:00 02/23/18 10:54 Librium - PO 25 mg [id number] TEMITOPE Administration ASSESSMENT/PLAN: This is a 67 yo m with PMH of EtOH abuse, Hep C, cirrhosis, depression, who presented to the ED in an intoxicated disorderly state, with an occipital scalp laceration. Acute EtOH intoxication, now in withdrawal -CIWA protoco--librium -thiamine, folate, vitamins, b12 -Dr Kohler consult Occipital scalp laceration -CT head unremarkable for acute pathology -s/p repair with deemtri -f/u in 2 w with PCP to remove demetri Smoker -recommend cessation FEN No fluids lyts stable regular diet Visit type - Emergency Visit Emergency Visit: Yes ED Registration Date: 02/22/18 Care time: The patient presented to the Emergency Department on the above date and was hospitalized for further evaluation of their emergent condition. - New Patient This patient is new to me today: Yes Date on this admission: 02/23/18 - Critical Care Critical Care patient: No
--- NOTE | 2018-02-23 13:52 | PN ---
Teaching Attending Note Name of Resident: Barney Gibson ATTENDING PHYSICIAN STATEMENT I saw and evaluated the patient. I reviewed the resident's note and discussed the case with the resident. I agree with the resident's findings and plan as documented. SUBJECTIVE: Patient has no complaints. OBJECTIVE: Vital Signs Period Temp Pulse Resp BP Sys/Suggs Pulse Ox Last 24 Hr 97.6 F-98.7 F 80-95 18-18 133-155/58-84 97-99 GENERAL: Tremulous HEART: S1S2, RRR LUNGS: Clear ABDOMEN: Soft, non-tender, non-distended, normal BS EXTREMITIES: No edema Laboratory Results - last 24 hr 02/23/18 02/23/18 02/23/18 07:45 07:45 07:45 WBC 3.1 L RBC 2.41 L Hgb 7.9 L Hct 23.1 L MCV 96.0 MCH 32.9 MCHC 34.2 RDW 16.7 H Plt Count 92 L MPV 9.3 PT with INR 13.20 H INR 1.17 H Sodium 138 Potassium 3.4 L Chloride 103 Carbon Dioxide 27 Anion Gap 8 BUN 19 H Creatinine 0.7 Creat Clearance w eGFR > 60 Random Glucose 97 Calcium 8.4 L Phosphorus 3.0 Magnesium 1.4 L Total Bilirubin 1.2 H AST 115 H ALT 44 Alkaline Phosphatase 102 Total Protein 6.8 Albumin 2.7 L Vitamin B12 Serum Folate 12 02/23/18 07:45 WBC RBC Hgb Hct MCV MCH MCHC RDW Plt Count MPV PT with INR INR Sodium Potassium Chloride Carbon Dioxide Anion Gap BUN Creatinine Creat Clearance w eGFR Random Glucose Calcium Phosphorus Magnesium Total Bilirubin AST ALT Alkaline Phosphatase Total Protein Albumin Vitamin B12 701 Serum Folate Current Medications Generic Name Dose Route Start Last Admin Trade Name Freq PRN Reason Stop Dose Admin Chlordiazepoxide HCl 25 mg 02/22/18 11:33 Librium - PO Q4H PRN WITHDRAWAL(CONT SUBST) Chlordiazepoxide HCl 25 mg 02/23/18 11:00 02/23/18 10:54 Librium - PO 25 mg [id number] TEMITOPE Administration ASSESSMENT AND PLAN: This is a 67 year old man with a history of cirrhosis, alcohol abuse, hepatitis C, depression who presented to the ED after falling and hitting his head while intoxicated. 1. Alcohol withdrawal, uncomplicated - Continue Librium detox 2. s/p fall with occipital scalp laceration - Laceration stapled - Head CT negative 3. Pancytopenia, likely secondary to alcohol 4. Hypokalemia - Replete potassium 5. Hypomagnesemia - Supplement magnesium 6. Continuous alcohol dependence - Thiamine, folic acid, multivitamin 7. Nicotine dependence 8. Cirrhosis 9. Hepatitis C 10. Depression
[2018-02-23] MEDS ORDERED: MULTIVITAMINS (DAILY MVI) TABLET (FP) PO SCH (14:00)
[2018-02-23] MEDS ORDERED: THIAMINE HCL 100 MG TABLET (FP) PO SCH (14:00)
[2018-02-23] MEDS: ESCITALOPRAM OXALATE 20 MG TABLET (FP) PO SCH (15:00)
[2018-02-23] MEDS: FOLIC ACID 1 MG TABLET (FP) PO SCH (15:21)
[2018-02-23] MEDS: CYANOCOBALAMIN 1,000 MCG TABLET (FP) PO SCH (15:21)
[2018-02-23] MEDS ORDERED: ESCITALOPRAM OXALATE 10 MG TABLET (FP) ONE (16:47)
[2018-02-23] MEDS ORDERED: PT OWN MED DRAWER 7, Y5N ONE (21:20)
[2018-02-23] MEDS: POTASSIUM CHLORIDE TABS 20 MEQ TABLET.ER (FP) PO SCH (22:33)
[2018-02-23] MEDS: cloNIDine HCL 0.1 MG TABLET PO SCH (22:33)
[2018-02-23] MEDS: MAGNESIUM OXIDE 400 MG TABLET (FP) PO SCH (22:33)
[2018-02-24] MEDS: chlordiazePOXIDE HCL 25 MG CAPSULE PO SCH ×2 (05:40→11:14)
[2018-02-24 07:06] LABS: BASO % 0.7 % (0-2.0); EOS % 2.6 % (0-4.5); HEMATOCRIT 22.9 % (35.4-49); HEMOGLOBIN 7.7 GM/dL (11.7-16.9); LYMPH % 33.3 % (8-40); MCH 32.5 pg (25.7-33.7); MCHC 33.7 g/dl (32.0-35.9); MEAN CELL VOLUME 96.5 fl (80-96); MEAN PLT VOLUME 9.2 fl (7.5-11.1); MONO % 14.7 % (3.8-10.2); NEUT % 48.7 % (42.8-82.8); PLATELET COUNT 99 K/MM3 (134-434); RBC 2.37 M/mm3 (4.00-5.60); RDW 16.3 % (11.9-15.9); WHITE BLOOD COUNT 3.7 K/mm3 (4.0-10.0)
[2018-02-24 07:36] LABS: INR 1.16 (0.82-1.09); PROTHROMBIN TIME (PATIENT) 13.1 SEC (9.98-11.88)
[2018-02-24 07:49] LABS: CHLORIDE 106 mmol/L (98-107); POTASSIUM 3.9 mmol/L (3.5-5.1); SODIUM 141 mmol/L (136-145)
[2018-02-24 07:55] LABS: ALBUMIN 2.6 g/dl (3.4-5.0); ALK PHOS 134 U/L (45-117); ANION GAP 9 (8-16); BILIRUBIN,TOTAL 0.7 mg/dL (0.2-1.0); BLOOD UREA NITROGEN 18 mg/dL (7-18); CALCIUM 8.5 mg/dL (8.5-10.1); CO2 26 mmol/L (21-32); CREATININE 0.8 mg/dL (0.7-1.3); GLUCOSE,RANDOM 97 mg/dL (74-106); SGOT/AST 104 U/L (15-37); SGPT/ALT 41 U/L (12-78); TOT PROT 6.9 g/dl (6.4-8.2)
[2018-02-24] MEDS ORDERED: ESCITALOPRAM OXALATE 10 MG TABLET (FP) ONE (09:12)
[2018-02-24] MEDS: POTASSIUM CHLORIDE TABS 20 MEQ TABLET.ER (FP) PO SCH (09:31)
[2018-02-24] MEDS: FOLIC ACID 1 MG TABLET (FP) PO SCH (09:31)
[2018-02-24] MEDS: cloNIDine HCL 0.1 MG TABLET PO SCH (09:31)
[2018-02-24] MEDS: ESCITALOPRAM OXALATE 20 MG TABLET (FP) PO SCH (09:32)
[2018-02-24] MEDS: PRENATAL VITAMINS W/ FOLIC ACID TABLET (FP) PO SCH (09:32)
[2018-02-24] MEDS: MAGNESIUM OXIDE 400 MG TABLET (FP) PO SCH ×2 (09:32→22:27)
[2018-02-24] MEDS: CYANOCOBALAMIN 1,000 MCG TABLET (FP) PO SCH (09:32)
--- NOTE | 2018-02-24 11:05 | PN ---
Physical Exam: SUBJECTIVE: Patient seen and examined No acute events overnight. Denies pain this morning. Continuous to feel tremulous and unstable while walking OBJECTIVE: Vital Signs Period Temp Pulse Resp BP Sys/Suggs Pulse Ox Last 24 Hr 98 F-98.7 F 82-88 18-18 138-156/72-86 96 GENERAL: Awake, alert, and fully oriented, in no acute distress. HEAD: Normal with no signs of trauma. +Scalp laceration with demetri EYES: Pupils equal, round and reactive to light, extraocular movements intact, sclera anicteric, conjunctiva clear. No lid lag. EARS, NOSE, THROAT: Moist mucous membranes. NECK: Normal range of motion, supple LUNGS: Breath sounds equal, clear to auscultation bilaterally. HEART: Regular rate and rhythm, normal S1 and S2, grade 3 systolic murmur ABDOMEN: Soft, nontender, not distended, normoactive bowel sounds, no guarding, no rebound, no masses. MUSCULOSKELETAL: No CVA tenderness. UPPER EXTREMITIES: 2+ pulses, warm, well-perfused. No cyanosis. No clubbing. No peripheral edema. LOWER EXTREMITIES: 2+ pulses, warm, well-perfused. No calf tenderness. No peripheral edema. NEUROLOGICAL: Cranial nerves II-XII intact. Normal speech. PSYCHIATRIC: Cooperative. Good eye contact. Appropriate mood and affect. SKIN: Warm, dry Laboratory Results - last 24 hr 02/24/18 02/24/18 02/24/18 06:45 06:45 06:45 WBC 3.7 L RBC 2.37 L Hgb 7.7 L Hct 22.9 L MCV 96.5 H MCH 32.5 MCHC 33.7 RDW 16.3 H Plt Count 99 L MPV 9.2 Neutrophils % 48.7 Lymphocytes % 33.3 Monocytes % 14.7 H Eosinophils % 2.6 Basophils % 0.7 PT with INR 13.10 H INR 1.16 H Sodium 141 Potassium 3.9 Chloride 106 Carbon Dioxide 26 Anion Gap 9 BUN 18 Creatinine 0.8 Creat Clearance w eGFR > 60 Random Glucose 97 Calcium 8.5 Total Bilirubin 0.7 D AST 104 H ALT 41 Alkaline Phosphatase 134 H D Total Protein 6.9 Albumin 2.6 L Active Medications Generic Name Dose Route Start Last Admin Trade Name Freq PRN Reason Stop Dose Admin Chlordiazepoxide HCl 25 mg 02/22/18 11:33 Librium - PO Q4H PRN WITHDRAWAL(CONT SUBST) Chlordiazepoxide HCl 25 mg 02/23/18 11:00 02/24/18 05:40 Librium - PO 25 mg [id number] TEMITOPE Administration Clonidine 0.1 mg 02/23/18 22:00 02/24/18 09:31 Catapres - PO 0.1 mg BID [facility]ITOPE Administration Cyanocobalamin 1,000 mcg 02/23/18 14:00 02/24/18 09:32 Vitamin B12 - PO 1,000 mcg DAILY [facility] Administration Escitalopram Oxalate 20 mg 02/23/18 15:00 02/24/18 09:32 Lexapro - PO 20 mg DAILY [facility] Administration Folic Acid 1 mg 02/23/18 14:00 02/24/18 09:31 Folic Acid - PO 1 mg DAILY [facility] Administration Magnesium Oxide 400 mg 02/23/18 22:00 02/24/18 09:32 Mag-Ox - PO 400 mg BID [facility] Administration Potassium Chloride 20 meq 02/23/18 22:00 02/24/18 09:31 K-Dur - PO 20 meq BID TEM[facility] Administration Multivit/Folic Acid/Iron 1 tab 02/24/18 10:00 02/24/18 09:32 Vitamins (Sjr) - PO 1 tab DAILY [facility]ITOPE Administration Thiamine HCl 100 mg 02/24/18 22:00 Vitamin B1 - PO HS [facility] ASSESSMENT/PLAN: This is a 67 yo m with PMH of EtOH abuse, Hep C, cirrhosis, depression, who presented to the ED in an intoxicated disorderly state, with an occipital scalp laceration. Acute EtOH intoxication, now in withdrawal -[facility] protoco--librium -thiamine, folate, vitamins, b12 -Dr Kohler consult -Walked 8 feet with PT yesterday, will re-evaluate today Occipital scalp laceration -CT head unremarkable for acute pathology -s/p repair with demetri -f/u in 2 w with PCP to remove demetri Smoker -recommend cessation FEN No fluids lyts stable regular diet Visit type - Emergency Visit Emergency Visit: Yes ED Registration Date: 02/22/18 Care time: The patient presented to the Emergency Department on the above date and was hospitalized for further evaluation of their emergent condition. - New Patient This patient is new to me today: No - Critical Care Critical Care patient: No
[2018-02-24 12:10] LABS: MAGNESIUM 1.8 mg/dL (1.8-2.4)
--- NOTE | 2018-02-24 12:38 | PN ---
Teaching Attending Note Name of Resident: Barney Gibson ATTENDING PHYSICIAN STATEMENT I saw and evaluated the patient. I reviewed the resident's note and discussed the case with the resident. I agree with the resident's findings and plan as documented. SUBJECTIVE: Patient has no complaints. He is less tremulous today. OBJECTIVE: Vital Signs Period Temp Pulse Resp BP Sys/Suggs Pulse Ox Last 24 Hr 98 F-98.7 F 82-88 18-18 98-156/64-86 96 HEART: S1S2, RRR LUNGS: Clear ABDOMEN: Soft, non-tender, non-distended, normal BS EXTREMITIES: No edema Laboratory Results - last 24 hr 02/24/18 02/24/18 02/24/18 06:45 06:45 06:45 WBC 3.7 L RBC 2.37 L Hgb 7.7 L Hct 22.9 L MCV 96.5 H MCH 32.5 MCHC 33.7 RDW 16.3 H Plt Count 99 L MPV 9.2 Neutrophils % 48.7 Lymphocytes % 33.3 Monocytes % 14.7 H Eosinophils % 2.6 Basophils % 0.7 PT with INR 13.10 H INR 1.16 H Sodium 141 Potassium 3.9 Chloride 106 Carbon Dioxide 26 Anion Gap 9 BUN 18 Creatinine 0.8 Creat Clearance w eGFR > 60 Random Glucose 97 Calcium 8.5 Magnesium 1.8 D Total Bilirubin 0.7 D AST 104 H ALT 41 Alkaline Phosphatase 134 H D Total Protein 6.9 Albumin 2.6 L 02/24/18 06:45 WBC RBC Hgb Hct MCV MCH MCHC RDW Plt Count MPV Neutrophils % Lymphocytes % Monocytes % Eosinophils % Basophils % PT with INR INR Sodium Potassium Chloride Carbon Dioxide Anion Gap BUN Creatinine Creat Clearance w eGFR Random Glucose Calcium Magnesium Cancelled Total Bilirubin AST ALT Alkaline Phosphatase Total Protein Albumin Current Medications Generic Name Dose Route Start Last Admin Trade Name Freq PRN Reason Stop Dose Admin Chlordiazepoxide HCl 25 mg 02/22/18 11:33 Librium - PO Q4H PRN WITHDRAWAL(CONT SUBST) Chlordiazepoxide HCl 25 mg 02/23/18 11:00 02/24/18 11:14 Librium - PO 02/24/18 16:59 25 mg [id number] TEMITOPE Administration Chlordiazepoxide HCl 15 mg 02/24/18 17:00 Librium - PO 02/25/18 11:01 [id number] [facility] Clonidine 0.1 mg 02/23/18 22:00 02/24/18 09:31 Catapres - PO 0.1 mg BID [facility] Administration Cyanocobalamin 1,000 mcg 02/23/18 14:00 02/24/18 09:32 Vitamin B12 - PO 1,000 mcg DAILY [facility] Administration Escitalopram Oxalate 20 mg 02/23/18 15:00 02/24/18 09:32 Lexapro - PO 20 mg DAILY [facility] Administration Folic Acid 1 mg 02/23/18 14:00 02/24/18 09:31 Folic Acid - PO 1 mg DAILY [facility] Administration Magnesium Oxide 400 mg 02/23/18 22:00 02/24/18 09:32 Mag-Ox - PO 400 mg BID [facility] Administration Potassium Chloride 20 meq 02/23/18 22:00 02/24/18 09:31 K-Dur - PO 20 meq BID [facility] Administration Multivit/Folic Acid/Iron 1 tab 02/24/18 10:00 02/24/18 09:32 Vitamins (Sjr) - PO 1 tab DAILY [facility] Administration Thiamine HCl 100 mg 02/24/18 22:00 Vitamin B1 - PO [facility] ASSESSMENT AND PLAN: This is a 67 year old man with a history of cirrhosis, alcohol abuse, hepatitis C, depression who presented to the ED after falling and hitting his head while intoxicated. 1. Alcohol withdrawal, uncomplicated - Continue Librium detox 2. s/p fall with occipital scalp laceration - Laceration stapled - Head CT negative 3. Pancytopenia, likely secondary to alcohol - Some improvement in WBC, platelets with slight decrease in Hgb - Continue to monitor 4. Hypokalemia - Improved 5. Hypomagnesemia - Improved 6. Continuous alcohol dependence - Thiamine, folic acid, multivitamin 7. Nicotine dependence 8. Cirrhosis 9. Hepatitis C 10. Depression
[2018-02-24] MEDS: chlordiazePOXIDE 5 MG CAPSULE PO SCH ×2 (16:52→22:27)
[2018-02-24] MEDS ORDERED: chlordiazePOXIDE 5 MG CAPSULE PO SCH ×2 (17:00)
[2018-02-24] MEDS: THIAMINE HCL 100 MG TABLET (FP) PO SCH (22:27)
[2018-02-25] MEDS ORDERED: PT OWN MED DRAWER 7, Y5N ONE (06:48)
[2018-02-25] MEDS: chlordiazePOXIDE 5 MG CAPSULE PO SCH ×2 (06:51→12:16)
[2018-02-25 07:57] LABS: EOS % 3.3 % (0-4.5); HEMATOCRIT 24.1 % (35.4-49); HEMOGLOBIN 8.1 GM/dL (11.7-16.9); LYMPH % 30.2 % (8-40); MCH 32.9 pg (25.7-33.7); MCHC 33.8 g/dl (32.0-35.9); MEAN CELL VOLUME 97.4 fl (80-96); MEAN PLT VOLUME 9.4 fl (7.5-11.1); MONO % 12.6 % (3.8-10.2); NEUT % 52.9 % (42.8-82.8); PLATELET COUNT 111 K/MM3 (134-434); RBC 2.47 M/mm3 (4.00-5.60); RDW 16.8 % (11.9-15.9); WHITE BLOOD COUNT 3.2 K/mm3 (4.0-10.0)
[2018-02-25 08:26] LABS: CHLORIDE 107 mmol/L (98-107); SODIUM 139 mmol/L (136-145)
[2018-02-25 08:38] LABS: ANION GAP 8 (8-16); BLOOD UREA NITROGEN 20 mg/dL (7-18); CALCIUM 8.7 mg/dL (8.5-10.1); CO2 24 mmol/L (21-32); CREATININE 0.8 mg/dL (0.7-1.3); GLUCOSE,RANDOM 91 mg/dL (74-106)
[2018-02-25] MEDS ORDERED: ESCITALOPRAM OXALATE 10 MG TABLET (FP) ONE (09:58)
[2018-02-25] MEDS: ESCITALOPRAM OXALATE 20 MG TABLET (FP) PO SCH (10:06)
[2018-02-25] MEDS: CYANOCOBALAMIN 1,000 MCG TABLET (FP) PO SCH (10:06)
[2018-02-25] MEDS: PRENATAL VITAMINS W/ FOLIC ACID TABLET (FP) PO SCH (10:06)
[2018-02-25] MEDS: MAGNESIUM OXIDE 400 MG TABLET (FP) PO SCH ×2 (10:06→21:41)
[2018-02-25] MEDS: FOLIC ACID 1 MG TABLET (FP) PO SCH (10:06)
--- NOTE | 2018-02-25 14:05 | PN ---
Physical Exam: SUBJECTIVE: Patient seen and examined No acute events overnight. Denies pain this morning. Continuous to feel tremulous and unstable while walking. Walked 40 feet with PT yesterday. OBJECTIVE: Vital Signs Period Temp Pulse Resp BP Sys/Suggs Pulse Ox Last 24 Hr 99 F-99.1 F 80-86 18-21 91-125/50-70 96 GENERAL: Awake, alert, and fully oriented, in no acute distress. HEAD: Normal with no signs of trauma. +Scalp laceration with demetri EYES: Pupils equal, round and reactive to light, extraocular movements intact, sclera anicteric, conjunctiva clear. No lid lag. EARS, NOSE, THROAT: Moist mucous membranes. NECK: Normal range of motion, supple LUNGS: Breath sounds equal, clear to auscultation bilaterally. HEART: Regular rate and rhythm, normal S1 and S2, grade 3 systolic murmur ABDOMEN: Soft, nontender, not distended, normoactive bowel sounds, no guarding, no rebound, no masses. MUSCULOSKELETAL: No CVA tenderness. UPPER EXTREMITIES: 2+ pulses, warm, well-perfused. No cyanosis. No clubbing. No peripheral edema. LOWER EXTREMITIES: 2+ pulses, warm, well-perfused. No calf tenderness. No peripheral edema. NEUROLOGICAL: Cranial nerves II-XII intact. Normal speech. PSYCHIATRIC: Cooperative. Good eye contact. Appropriate mood and affect. SKIN: Warm, dry Laboratory Results - last 24 hr 02/25/18 02/25/18 06:40 06:40 WBC 3.2 L RBC 2.47 L Hgb 8.1 L Hct 24.1 L MCV 97.4 H MCH 32.9 MCHC 33.8 RDW 16.8 H Plt Count 111 L MPV 9.4 Neutrophils % 52.9 Lymphocytes % 30.2 Monocytes % 12.6 H Eosinophils % 3.3 Basophils % 1.0 Sodium 139 Potassium 4.0 Chloride 107 Carbon Dioxide 24 Anion Gap 8 BUN 20 H Creatinine 0.8 Random Glucose 91 Calcium 8.7 Active Medications Generic Name Dose Route Start Last Admin Trade Name Freq PRN Reason Stop Dose Admin Cyanocobalamin 1,000 mcg 02/23/18 14:00 02/25/18 10:06 Vitamin B12 - PO 1,000 mcg DAILY [facility]ITOPE Administration Escitalopram Oxalate 20 mg 02/23/18 15:00 04/06/18 10:06 Lexapro - PO 20 mg DAILY ETMITOPE Administration Folic Acid 1 mg 02/23/18 14:00 02/25/18 10:06 Folic Acid - PO 1 mg DAILY [facility]ITOPE Administration Magnesium Oxide 400 mg 02/23/18 22:00 02/25/18 10:06 Mag-Ox - PO 400 mg BID [facility]ITOPE Administration Multivit/Folic Acid/Iron 1 tab 02/24/18 10:00 02/25/18 10:06 Vitamins (Sjr) - PO 1 tab DAILY [facility]ITOPE Administration Thiamine HCl 100 mg 02/24/18 22:00 02/24/18 22:27 Vitamin B1 - PO 100 mg HS TEMITOPE Administration ASSESSMENT/PLAN: This is a 67 yo m with PMH of EtOH abuse, Hep C, cirrhosis, depression, who presented to the ED in an intoxicated disorderly state, with an occipital scalp laceration. Acute EtOH intoxication, now in withdrawal -[facility] protocol--librium. Last day today -thiamine, folate, vitamins, b12 -Dr Kohler consult -Walked 40 feet with PT yesterday, will re-evaluate today Occipital scalp laceration -CT head unremarkable for acute pathology -s/p repair with demetri -f/u in 2 w with PCP to remove demetri Smoker -recommend cessation FEN No fluids lyts stable regular diet Visit type - Emergency Visit Emergency Visit: Yes ED Registration Date: 02/22/18 Care time: The patient presented to the Emergency Department on the above date and was hospitalized for further evaluation of their emergent condition. - New Patient This patient is new to me today: No - Critical Care Critical Care patient: No
--- NOTE | 2018-02-25 16:42 | PN ---
Teaching Attending Note Name of Resident: Barney Gibson ATTENDING PHYSICIAN STATEMENT I saw and evaluated the patient. I reviewed the resident's note and discussed the case with the resident. I agree with the resident's findings and plan as documented. SUBJECTIVE: No complaints. OBJECTIVE: Vital Signs Period Temp Pulse Resp BP Sys/Suggs Pulse Ox Last 24 Hr 99 F-99.6 F 77-86 18-21 91-125/50-70 96 HEART: S1S2, RRR LUNGS: Clear ABDOMEN: Soft, non-tender, non-distended, normal BS EXTREMITIES: No edema Laboratory Results - last 24 hr 02/25/18 02/25/18 06:40 06:40 WBC 3.2 L RBC 2.47 L Hgb 8.1 L Hct 24.1 L MCV 97.4 H MCH 32.9 MCHC 33.8 RDW 16.8 H Plt Count 111 L MPV 9.4 Neutrophils % 52.9 Lymphocytes % 30.2 Monocytes % 12.6 H Eosinophils % 3.3 Basophils % 1.0 Sodium 139 Potassium 4.0 Chloride 107 Carbon Dioxide 24 Anion Gap 8 BUN 20 H Creatinine 0.8 Random Glucose 91 Calcium 8.7 Current Medications Generic Name Dose Route Start Last Admin Trade Name Freq PRN Reason Stop Dose Admin Cyanocobalamin 1,000 mcg 02/23/18 14:00 02/25/18 10:06 Vitamin B12 - PO 1,000 mcg DAILY [facility]ITOPE Administration Escitalopram Oxalate 20 mg 02/23/18 15:00 02/25/18 10:06 Lexapro - PO 20 mg DAILY [facility]ITOPE Administration Folic Acid 1 mg 02/23/18 14:00 02/25/18 10:06 Folic Acid - PO 1 mg DAILY [facility]ITOPE Administration Magnesium Oxide 400 mg 02/23/18 22:00 02/25/18 10:06 Mag-Ox - PO 400 mg BID [facility]ITOPE Administration Multivit/Folic Acid/Iron 1 tab 02/24/18 10:00 02/25/18 10:06 Vitamins (Sjr) - PO 1 tab DAILY [facility]ITOPE Administration Thiamine HCl 100 mg 02/24/18 22:00 02/24/18 22:27 Vitamin B1 - PO 100 mg HS [facility]ITOPE Administration ASSESSMENT AND PLAN: This is a 67 year old man with a history of cirrhosis, alcohol abuse, hepatitis C, depression who presented to the ED after falling and hitting his head while intoxicated. 1. Alcohol withdrawal, uncomplicated - Completed Librium detox today 2. s/p fall with occipital scalp laceration - Laceration stapled - Head CT negative 3. Pancytopenia, likely secondary to alcohol - Platelets improving, WBC and Hgb stable - Continue to monitor 4. Hypokalemia - Improved 5. Hypomagnesemia - Improved 6. Continuous alcohol dependence - Continue thiamine, folic acid, multivitamin 7. Nicotine dependence 8. Cirrhosis 9. Hepatitis C 10. Depression 11. Disposition - Ambulated 25' with rolling walker with PT today, gait unsteady - Will likely need subacute rehab
[2018-02-25] MEDS: THIAMINE HCL 100 MG TABLET (FP) PO SCH (21:41)
[2018-02-26 08:42] LABS: BASO % 0.8 % (0-2.0); EOS % 2.9 % (0-4.5); HEMATOCRIT 25.4 % (35.4-49); HEMOGLOBIN 8.4 GM/dL (11.7-16.9); MCH 32.4 pg (25.7-33.7); MCHC 33.1 g/dl (32.0-35.9); MEAN CELL VOLUME 97.8 fl (80-96); MEAN PLT VOLUME 9.3 fl (7.5-11.1); NEUT % 52.3 % (42.8-82.8); PLATELET COUNT 110 K/MM3 (134-434); RBC 2.59 M/mm3 (4.00-5.60); RDW 16.6 % (11.9-15.9); WHITE BLOOD COUNT 3.5 K/mm3 (4.0-10.0)
[2018-02-26 09:02] LABS: CHLORIDE 107 mmol/L (98-107); POTASSIUM 3.9 mmol/L (3.5-5.1); SODIUM 139 mmol/L (136-145)
[2018-02-26 09:20] LABS: ANION GAP 6 (8-16); BLOOD UREA NITROGEN 23 mg/dL (7-18); CALCIUM 8.5 mg/dL (8.5-10.1); CO2 26 mmol/L (21-32); CREATININE 0.8 mg/dL (0.7-1.3); GLUCOSE,RANDOM 93 mg/dL (74-106)
[2018-02-26] MEDS ORDERED: ESCITALOPRAM OXALATE 10 MG TABLET (FP) ONE (09:35)
[2018-02-26] MEDS ORDERED: PT OWN MED DRAWER 7, Y5N ONE (09:37)
[2018-02-26] MEDS: ESCITALOPRAM OXALATE 20 MG TABLET (FP) PO SCH (09:39)
[2018-02-26] MEDS: FOLIC ACID 1 MG TABLET (FP) PO SCH (09:39)
[2018-02-26] MEDS: PRENATAL VITAMINS W/ FOLIC ACID TABLET (FP) PO SCH (09:39)
[2018-02-26] MEDS: CYANOCOBALAMIN 1,000 MCG TABLET (FP) PO SCH (09:39)
[2018-02-26] MEDS: MAGNESIUM OXIDE 400 MG TABLET (FP) PO SCH ×2 (09:39→22:15)
--- NOTE | 2018-02-26 11:07 | PN ---
Teaching Attending Note Name of Resident: Barney Gibson ATTENDING PHYSICIAN STATEMENT I saw and evaluated the patient. I reviewed the resident's note and discussed the case with the resident. I agree with the resident's findings and plan as documented. SUBJECTIVE: No complaints. Wants to go home. OBJECTIVE: Vital Signs Period Temp Pulse Resp BP Sys/Suggs Pulse Ox Last 24 Hr 98.2 F-99.6 F 76-86 18-18 91-131/50-70 95 HEART: S1S2, RRR LUNGS: Clear ABDOMEN: Soft, non-tender, non-distended, normal BS EXTREMITIES: No edema Laboratory Results - last 24 hr 02/26/18 02/26/18 07:30 07:30 WBC 3.5 L RBC 2.59 L Hgb 8.4 L Hct 25.4 L MCV 97.8 H MCH 32.4 MCHC 33.1 RDW 16.6 H Plt Count 110 L MPV 9.3 Neutrophils % 52.3 Lymphocytes % 28.0 Monocytes % 16.0 H Eosinophils % 2.9 Basophils % 0.8 Sodium 139 Potassium 3.9 Chloride 107 Carbon Dioxide 26 Anion Gap 6 L BUN 23 H Creatinine 0.8 Random Glucose 93 Calcium 8.5 Current Medications Generic Name Dose Route Start Last Admin Trade Name Freq PRN Reason Stop Dose Admin Cyanocobalamin 1,000 mcg 02/23/18 14:00 02/26/18 09:39 Vitamin B12 - PO 1,000 mcg DAILY TEMITOPE Administration Escitalopram Oxalate 20 mg 02/23/18 15:00 02/26/18 09:39 Lexapro - PO 20 mg DAILY [facility]ITOPE Administration Folic Acid 1 mg 02/23/18 14:00 02/26/18 09:39 Folic Acid - PO 1 mg DAILY [facility]ITOPE Administration Magnesium Oxide 400 mg 02/23/18 22:00 02/26/18 09:39 Mag-Ox - PO 400 mg BID [facility]ITOPE Administration Multivit/Folic Acid/Iron 1 tab 02/24/18 10:00 02/26/18 09:39 Vitamins (Sjr) - PO 1 tab DAILY [facility]ITOPE Administration Thiamine HCl 100 mg 02/24/18 22:00 02/25/18 21:41 Vitamin B1 - PO 100 mg HS TEMITOPE Administration ASSESSMENT AND PLAN: This is a 67 year old man with a history of cirrhosis, alcohol abuse, hepatitis C, depression who presented to the ED after falling and hitting his head while intoxicated. 1. Alcohol withdrawal, uncomplicated - Completed Librium detox 2. s/p fall with occipital scalp laceration - Laceration stapled in ED - Head CT negative 3. Pancytopenia, likely secondary to alcohol - Stable 4. Hypokalemia - Improved 5. Hypomagnesemia - Improved 6. Continuous alcohol dependence - Continue thiamine, folic acid, multivitamin 7. Nicotine dependence 8. Cirrhosis 9. Hepatitis C 10. Depression 11. Disposition - Ambulated 25' with rolling walker with PT yesterday, gait unsteady - Refusing subacute rehab
--- NOTE | 2018-02-26 16:54 | PN ---
Physical Exam: SUBJECTIVE: Patient seen and examined No acute events overnight. Denies pain this morning. Continuous to feel tremulous and unstable while walking. Walked 25 feet with PT yesterday. OBJECTIVE: Vital Signs Period Temp Pulse Resp BP Sys/Suggs Pulse Ox Last 24 Hr 98 F-98.9 F 72-113 18-20 99-150/66-78 95 GENERAL: Awake, alert, and fully oriented, in no acute distress. HEAD: Normal with no signs of trauma. +Scalp laceration with demetri EYES: Pupils equal, round and reactive to light, extraocular movements intact, sclera anicteric, conjunctiva clear. No lid lag. EARS, NOSE, THROAT: Moist mucous membranes. NECK: Normal range of motion, supple LUNGS: Breath sounds equal, clear to auscultation bilaterally. HEART: Regular rate and rhythm, normal S1 and S2, grade 3 systolic murmur ABDOMEN: Soft, nontender, not distended, normoactive bowel sounds, no guarding, no rebound, no masses. MUSCULOSKELETAL: No CVA tenderness. UPPER EXTREMITIES: 2+ pulses, warm, well-perfused. No cyanosis. No clubbing. No peripheral edema. LOWER EXTREMITIES: 2+ pulses, warm, well-perfused. No calf tenderness. No peripheral edema. NEUROLOGICAL: Cranial nerves II-XII intact. Normal speech. PSYCHIATRIC: Cooperative. Good eye contact. Appropriate mood and affect. SKIN: Warm, dry Laboratory Results - last 24 hr 02/26/18 02/26/18 07:30 07:30 WBC 3.5 L RBC 2.59 L Hgb 8.4 L Hct 25.4 L MCV 97.8 H MCH 32.4 MCHC 33.1 RDW 16.6 H Plt Count 110 L MPV 9.3 Neutrophils % 52.3 Lymphocytes % 28.0 Monocytes % 16.0 H Eosinophils % 2.9 Basophils % 0.8 Sodium 139 Potassium 3.9 Chloride 107 Carbon Dioxide 26 Anion Gap 6 L BUN 23 H Creatinine 0.8 Random Glucose 93 Calcium 8.5 Active Medications Generic Name Dose Route Start Last Admin Trade Name Freq PRN Reason Stop Dose Admin Cyanocobalamin 1,000 mcg 02/23/18 14:00 02/26/18 09:39 Vitamin B12 - PO 1,000 mcg DAILY TEMITOPE Administration Escitalopram Oxalate 20 mg 02/23/18 15:00 02/26/18 09:39 Lexapro - PO 20 mg DAILY [facility]ITOPE Administration Folic Acid 1 mg 02/23/18 14:00 02/26/18 09:39 Folic Acid - PO 1 mg DAILY TEMITOPE Administration Magnesium Oxide 400 mg 02/23/18 22:00 02/26/18 09:39 Mag-Ox - PO 400 mg BID TEMITOPE Administration Multivit/Folic Acid/Iron 1 tab 02/24/18 10:00 02/26/18 09:39 Vitamins (Sjr) - PO 1 tab DAILY TEMITOPE Administration Thiamine HCl 100 mg 02/24/18 22:00 02/25/18 21:41 Vitamin B1 - PO 100 mg HS TEMITOPE Administration ASSESSMENT/PLAN: This is a 67 yo m with PMH of EtOH abuse, Hep C, cirrhosis, depression, who presented to the ED in an intoxicated disorderly state, with an occipital scalp laceration. Acute EtOH intoxication, completed detox -Detox completed -thiamine, folate, vitamins, b12 -Dr Kohler consult -Walked 25 feet with PT yesterday, will re-evaluate today. Patient will likely need subacute rehab Occipital scalp laceration -CT head unremarkable for acute pathology -s/p repair with demetri -f/u in 2 w with PCP to remove demetri Smoker -recommend cessation FEN No fluids lyts stable regular diet Visit type - Emergency Visit Emergency Visit: Yes ED Registration Date: 02/22/18 Care time: The patient presented to the Emergency Department on the above date and was hospitalized for further evaluation of their emergent condition. - New Patient This patient is new to me today: No - Critical Care Critical Care patient: No
[2018-02-26] MEDS ORDERED: chlordiazePOXIDE 5 MG CAPSULE PO SCH (17:00)
[2018-02-26] MEDS: THIAMINE HCL 100 MG TABLET (FP) PO SCH (22:15)
[2018-02-27 09:10] LABS: BASO % 0.6 % (0-2.0); EOS % 2.8 % (0-4.5); HEMATOCRIT 26.4 % (35.4-49); HEMOGLOBIN 8.9 GM/dL (11.7-16.9); LYMPH % 25.1 % (8-40); MCH 32.8 pg (25.7-33.7); MCHC 33.6 g/dl (32.0-35.9); MEAN CELL VOLUME 97.8 fl (80-96); MEAN PLT VOLUME 9.7 fl (7.5-11.1); MONO % 14.2 % (3.8-10.2); NEUT % 57.3 % (42.8-82.8); PLATELET COUNT 124 K/MM3 (134-434); RDW 16.6 % (11.9-15.9); WHITE BLOOD COUNT 4.7 K/mm3 (4.0-10.0)
[2018-02-27 09:16] LABS: ANION GAP 6 (8-16); BLOOD UREA NITROGEN 21 mg/dL (7-18); CALCIUM 8.5 mg/dL (8.5-10.1); CHLORIDE 107 mmol/L (98-107); CO2 26 mmol/L (21-32); CREATININE 0.8 mg/dL (0.7-1.3); GLUCOSE,RANDOM 90 mg/dL (74-106); MAGNESIUM 1.7 mg/dL (1.8-2.4); SODIUM 139 mmol/L (136-145)
[2018-02-27] MEDS ORDERED: ESCITALOPRAM OXALATE 10 MG TABLET (FP) ONE (10:02)
[2018-02-27] MEDS: CYANOCOBALAMIN 1,000 MCG TABLET (FP) PO SCH (10:04)
[2018-02-27] MEDS: PRENATAL VITAMINS W/ FOLIC ACID TABLET (FP) PO SCH (10:04)
[2018-02-27] MEDS: FOLIC ACID 1 MG TABLET (FP) PO SCH (10:05)
[2018-02-27] MEDS: ESCITALOPRAM OXALATE 20 MG TABLET (FP) PO SCH (10:05)
[2018-02-27] MEDS: MAGNESIUM OXIDE 400 MG TABLET (FP) PO SCH ×2 (10:05→21:04)
--- NOTE | 2018-02-27 17:49 | PN ---
Physical Exam: SUBJECTIVE: Patient seen and examined. He has no complaints. OBJECTIVE: Vital Signs Period Temp Pulse Resp BP Sys/Suggs Pulse Ox Last 24 Hr 97.8 F-99.3 F 79-96 18-20 135-147/69-76 96-98 GENERAL: The patient is awake, alert, in no acute distress. LUNGS: Breath sounds equal, clear to auscultation bilaterally, no wheezes, no crackles, no accessory muscle use. HEART: Regular rate and rhythm, S1, S2 without murmur, rub or gallop. ABDOMEN: Soft, nontender, nondistended, normoactive bowel sounds, no guarding, no rebound, no hepatosplenomegaly, no masses. EXTREMITIES: 2+ pulses, warm, well-perfused, no edema. Laboratory Results - last 24 hr 02/27/18 02/27/18 08:30 08:30 WBC 4.7 D RBC 2.70 L Hgb 8.9 L Hct 26.4 L MCV 97.8 H MCH 32.8 MCHC 33.6 RDW 16.6 H Plt Count 124 L MPV 9.7 Neutrophils % 57.3 Lymphocytes % 25.1 Monocytes % 14.2 H Eosinophils % 2.8 Basophils % 0.6 Sodium 139 Potassium 4.0 Chloride 107 Carbon Dioxide 26 Anion Gap 6 L BUN 21 H Creatinine 0.8 Random Glucose 90 Calcium 8.5 Phosphorus 4.0 D Magnesium 1.7 L Active Medications Generic Name Dose Route Start Last Admin Trade Name Freq PRN Reason Stop Dose Admin Cyanocobalamin 1,000 mcg 02/23/18 14:00 02/27/18 10:04 Vitamin B12 - PO 1,000 mcg DAILY [facility]ITOPE Administration Escitalopram Oxalate 20 mg 02/23/18 15:00 02/27/18 10:05 Lexapro - PO 20 mg DAILY [facility]ITOPE Administration Folic Acid 1 mg 02/23/18 14:00 02/27/18 10:05 Folic Acid - PO 1 mg DAILY TEMITOPE Administration Magnesium Oxide 400 mg 02/23/18 22:00 02/27/18 10:05 Mag-Ox - PO 400 mg BID TEMITOPE Administration Multivit/Folic Acid/Iron 1 tab 02/24/18 10:00 02/27/18 10:04 Vitamins (Sjr) - PO 1 tab DAILY TEMITOPE Administration Thiamine HCl 100 mg 02/24/18 22:00 02/26/18 22:15 Vitamin B1 - PO 100 mg HS TEMITOPE Administration ASSESSMENT/PLAN: This is a 67 year old man with a history of cirrhosis, alcohol abuse, hepatitis C, depression who presented to the ED after falling and hitting his head while intoxicated. 1. Alcohol withdrawal, uncomplicated - Completed Librium detox 2. s/p fall with occipital scalp laceration - Laceration stapled in ED - Head CT negative 3. Pancytopenia, likely secondary to alcohol - Improving 4. Hypokalemia - Improved 5. Hypomagnesemia - Continue MagOx 6. Continuous alcohol dependence - Continue thiamine, folic acid, multivitamin 7. Nicotine dependence 8. Cirrhosis 9. Hepatitis C 10. Depression 11. Disposition - Continue PT - On 02/25, he ambulated 25' with rolling walker with PT and gait was unsteady - Refusing subacute rehab Visit type - Emergency Visit Emergency Visit: Yes ED Registration Date: 02/22/18 Care time: The patient presented to the Emergency Department on the above date and was hospitalized for further evaluation of their emergent condition. - New Patient This patient is new to me today: No - Critical Care Critical Care patient: No - Discharge Referral Referred to [facility] Med P.C[facility] No
[2018-02-27] MEDS: THIAMINE HCL 100 MG TABLET (FP) PO SCH (21:04)
--- NOTE | 2018-02-27 23:22 | PN ---
[facility] Progress Note (SOAP) Subjective: no complaints, no withdrwal sx noted Objective: 02/27/18 23:20 Vital Signs (72 hours) 02/25/18 02/25/18 02/25/18 08:27 12:00 15:08 Temperature 99.1 F 99.6 F Pulse Rate 82 86 77 Respiratory 18 18 Rate Blood Pressure 125/70 91/50 100/64 O2 Sat by Pulse Oximetry (%) 02/25/18 02/25/18 02/26/18 22:00 23:00 02:02 Temperature 98.9 F 98.2 F Pulse Rate 84 76 Respiratory 18 18 Rate Blood Pressure 108/66 129/69 O2 Sat by Pulse 95 Oximetry (%) 02/26/18 02/26/18 02/26/18 06:00 10:00 14:00 Temperature 98.8 F 98 F 98.4 F Pulse Rate 78 72 113 H Respiratory 18 18 20 Rate Blood Pressure 131/70 150/78 99/73 O2 Sat by Pulse Oximetry (%) 02/26/18 02/26/18 02/27/18 21:00 21:51 06:00 Temperature 99.3 F 97.8 F Pulse Rate 96 H 90 Respiratory 20 20 Rate Blood Pressure 136/76 147/69 O2 Sat by Pulse 96 Oximetry (%) 02/27/18 02/27/18 02/27/18 08:21 09:00 14:00 Temperature 97.8 F 98.3 F Pulse Rate 79 Respiratory 18 Rate Blood Pressure 135/73 O2 Sat by Pulse 98 Oximetry (%) Laboratory Tests 02/23/18 02/23/18 02/23/18 07:45 07:45 07:45 WBC 3.1 L RBC 2.41 L Hgb 7.9 L Hct 23.1 L MCV 96.0 MCH 32.9 MCHC 34.2 RDW 16.7 H Plt Count 92 L MPV 9.3 Neutrophils % Lymphocytes % Monocytes % Eosinophils % Basophils % PT with INR 13.20 H INR 1.17 H Sodium 138 Potassium 3.4 L Chloride 103 Carbon Dioxide 27 Anion Gap 8 BUN 19 H Creatinine 0.7 Creat Clearance w eGFR > 60 Random Glucose 97 Calcium 8.4 L Phosphorus 3.0 Magnesium 1.4 L Total Bilirubin 1.2 H AST 115 H ALT 44 Alkaline Phosphatase 102 Total Protein 6.8 Albumin 2.7 L Vitamin B12 Serum Folate 12 04/04/18 04/05/18 04/05/18 07:45 06:45 06:45 WBC 3.7 L RBC 2.37 L Hgb 7.7 L Hct 22.9 L MCV 96.5 H MCH 32.5 MCHC 33.7 RDW 16.3 H Plt Count 99 L MPV 9.2 Neutrophils % 48.7 Lymphocytes % 33.3 Monocytes % 14.7 H Eosinophils % 2.6 Basophils % 0.7 PT with INR 13.10 H INR 1.16 H Sodium Potassium Chloride Carbon Dioxide Anion Gap BUN Creatinine Creat Clearance w eGFR Random Glucose Calcium Phosphorus Magnesium Total Bilirubin AST ALT Alkaline Phosphatase Total Protein Albumin Vitamin B12 701 Serum Folate 02/24/18 02/24/18 02/25/18 06:45 06:45 06:40 WBC 3.2 L RBC 2.47 L Hgb 8.1 L Hct 24.1 L MCV 97.4 H MCH 32.9 MCHC 33.8 RDW 16.8 H Plt Count 111 L MPV 9.4 Neutrophils % 52.9 Lymphocytes % 30.2 Monocytes % 12.6 H Eosinophils % 3.3 Basophils % 1.0 PT with INR INR Sodium 141 Potassium 3.9 Chloride 106 Carbon Dioxide 26 Anion Gap 9 BUN 18 Creatinine 0.8 Creat Clearance w eGFR > 60 Random Glucose 97 Calcium 8.5 Phosphorus Magnesium 1.8 D Cancelled Total Bilirubin 0.7 D AST 104 H ALT 41 Alkaline Phosphatase 134 H D Total Protein 6.9 Albumin 2.6 L Vitamin B12 Serum Folate 02/25/18 02/26/18 02/26/18 06:40 07:30 07:30 WBC 3.5 L RBC 2.59 L Hgb 8.4 L Hct 25.4 L MCV 97.8 H MCH 32.4 MCHC 33.1 RDW 16.6 H Plt Count 110 L MPV 9.3 Neutrophils % 52.3 Lymphocytes % 28.0 Monocytes % 16.0 H Eosinophils % 2.9 Basophils % 0.8 PT with INR INR Sodium 139 139 Potassium 4.0 3.9 Chloride 107 107 Carbon Dioxide 24 26 Anion Gap 8 6 L BUN 20 H 23 H Creatinine 0.8 0.8 Creat Clearance w eGFR Random Glucose 91 93 Calcium 8.7 8.5 Phosphorus Magnesium Total Bilirubin AST ALT Alkaline Phosphatase Total Protein Albumin Vitamin B12 Serum Folate 02/27/18 02/27/18 08:30 08:30 WBC 4.7 D RBC 2.70 L Hgb 8.9 L Hct 26.4 L MCV 97.8 H MCH 32.8 MCHC 33.6 RDW 16.6 H Plt Count 124 L MPV 9.7 Neutrophils % 57.3 Lymphocytes % 25.1 Monocytes % 14.2 H Eosinophils % 2.8 Basophils % 0.6 PT with INR INR Sodium 139 Potassium 4.0 Chloride 107 Carbon Dioxide 26 Anion Gap 6 L BUN 21 H Creatinine 0.8 Creat Clearance w eGFR Random Glucose 90 Calcium 8.5 Phosphorus 4.0 D Magnesium 1.7 L Total Bilirubin AST ALT Alkaline Phosphatase Total Protein Albumin Vitamin B12 Serum Folate low MG Assessment: 02/27/18 23:21 alcohol use disorder, low mg, supplement continue vitamins arrane for aftercare.
[2018-02-27] MEDS ORDERED: ZOLPIDEM TARTRATE 5 MG TABLET PO PRN (23:23)
[2018-02-28 07:44] LABS: ANION GAP 4 (8-16); BLOOD UREA NITROGEN 23 mg/dL (7-18); CALCIUM 8.3 mg/dL (8.5-10.1); CHLORIDE 109 mmol/L (98-107); CO2 27 mmol/L (21-32); CREATININE 0.8 mg/dL (0.7-1.3); GLUCOSE,RANDOM 86 mg/dL (74-106); MAGNESIUM 1.8 mg/dL (1.8-2.4); POTASSIUM 4.2 mmol/L (3.5-5.1); SODIUM 140 mmol/L (136-145)
[2018-02-28 08:12] LABS: BASO % 0.7 % (0-2.0); EOS % 2.7 % (0-4.5); HEMATOCRIT 26.4 % (35.4-49); HEMOGLOBIN 8.8 GM/dL (11.7-16.9); MCH 32.6 pg (25.7-33.7); MCHC 33.4 g/dl (32.0-35.9); MEAN CELL VOLUME 97.7 fl (80-96); MEAN PLT VOLUME 9.5 fl (7.5-11.1); NEUT % 53.6 % (42.8-82.8); PLATELET COUNT 143 K/MM3 (134-434); RDW 17.1 % (11.9-15.9); WHITE BLOOD COUNT 4.5 K/mm3 (4.0-10.0)
[2018-02-28] MEDS ORDERED: PT OWN MED DRAWER 7, Y5N ONE (09:36)
[2018-02-28] MEDS ORDERED: ESCITALOPRAM OXALATE 10 MG TABLET (FP) ONE (09:36)
[2018-02-28] MEDS: ESCITALOPRAM OXALATE 20 MG TABLET (FP) PO SCH (09:37)
[2018-02-28] MEDS: CYANOCOBALAMIN 1,000 MCG TABLET (FP) PO SCH (09:37)
[2018-02-28] MEDS: FOLIC ACID 1 MG TABLET (FP) PO SCH (09:37)
[2018-02-28] MEDS: MAGNESIUM OXIDE 400 MG TABLET (FP) PO SCH ×2 (09:37→21:26)
[2018-02-28] MEDS: PRENATAL VITAMINS W/ FOLIC ACID TABLET (FP) PO SCH (09:38)
--- NOTE | 2018-02-28 10:50 | PN ---
Teaching Attending Note Name of Resident: Barney Gibson ATTENDING PHYSICIAN STATEMENT I saw and evaluated the patient. I reviewed the resident's note and discussed the case with the resident. I agree with the resident's findings and plan as documented. SUBJECTIVE: OBJECTIVE: Vital Signs Period Temp Pulse Resp BP Sys/Suggs Pulse Ox Last 24 Hr 97.8 F-98.7 F 78-88 20-20 136-144/71-82 95 Laboratory Results - last 24 hr 02/28/18 02/28/18 06:37 06:37 WBC 4.5 RBC 2.70 L Hgb 8.8 L Hct 26.4 L MCV 97.7 H MCH 32.6 MCHC 33.4 RDW 17.1 H Plt Count 143 MPV 9.5 Neutrophils % 53.6 Lymphocytes % 28.0 Monocytes % 15.0 H Eosinophils % 2.7 Basophils % 0.7 Sodium 140 Potassium 4.2 Chloride 109 H Carbon Dioxide 27 Anion Gap 4 L BUN 23 H Creatinine 0.8 Random Glucose 86 Calcium 8.3 L Magnesium 1.8 Current Medications Generic Name Dose Route Start Last Admin Trade Name Freq PRN Reason Stop Dose Admin Cyanocobalamin 1,000 mcg 02/23/18 14:00 02/28/18 09:37 Vitamin B12 - PO 1,000 mcg DAILY [facility]ITOPE Administration Escitalopram Oxalate 20 mg 02/23/18 15:00 02/28/18 09:37 Lexapro - PO 20 mg DAILY [facility]ITOPE Administration Folic Acid 1 mg 02/23/18 14:00 02/28/18 09:37 Folic Acid - PO 1 mg DAILY [facility]ITOPE Administration Magnesium Oxide 400 mg 02/23/18 22:00 02/28/18 09:37 Mag-Ox - PO 400 mg BID TEMITOPE Administration Multivit/Folic Acid/Iron 1 tab 02/24/18 10:00 02/28/18 09:38 Vitamins (Sjr) - PO 1 tab DAILY [facility]ITOPE Administration Thiamine HCl 100 mg 02/24/18 22:00 02/27/18 21:04 Vitamin B1 - PO 100 mg HS [facility]ITOPE Administration Trazodone HCl 50 mg 02/28/18 22:00 Desyrel - PO HS TEMITOPE Zolpidem Tartrate 5 mg 02/27/18 23:23 Ambien - PO HS PRN INSOMNIA ASSESSMENT AND PLAN:
--- NOTE | 2018-02-28 17:03 | PN ---
Physical Exam: SUBJECTIVE: Patient seen and examined No acute events overnight. Patient feels well. Wants to go home. Continues to be unstable with PT OBJECTIVE: Vital Signs Period Temp Pulse Resp BP Sys/Suggs Pulse Ox Last 24 Hr 97.8 F-98.7 F 78-109 18-20 96-144/57-82 95-99 GENERAL: Awake, alert, and fully oriented, in no acute distress. HEAD: Normal with no signs of trauma. +Scalp laceration with demetri EYES: Pupils equal, round and reactive to light, extraocular movements intact, sclera anicteric, conjunctiva clear. No lid lag. EARS, NOSE, THROAT: Moist mucous membranes. NECK: Normal range of motion, supple LUNGS: Breath sounds equal, clear to auscultation bilaterally. HEART: Regular rate and rhythm, normal S1 and S2, grade 3 systolic murmur ABDOMEN: Soft, nontender, not distended, normoactive bowel sounds, no guarding, no rebound, no masses. MUSCULOSKELETAL: No CVA tenderness. UPPER EXTREMITIES: 2+ pulses, warm, well-perfused. No cyanosis. No clubbing. No peripheral edema. LOWER EXTREMITIES: 2+ pulses, warm, well-perfused. No calf tenderness. No peripheral edema. NEUROLOGICAL: Cranial nerves II-XII intact. Normal speech. PSYCHIATRIC: Cooperative. Good eye contact. Appropriate mood and affect. SKIN: Warm, dry Laboratory Results - last 24 hr 02/28/18 02/28/18 06:37 06:37 WBC 4.5 RBC 2.70 L Hgb 8.8 L Hct 26.4 L MCV 97.7 H MCH 32.6 MCHC 33.4 RDW 17.1 H Plt Count 143 MPV 9.5 Neutrophils % 53.6 Lymphocytes % 28.0 Monocytes % 15.0 H Eosinophils % 2.7 Basophils % 0.7 Sodium 140 Potassium 4.2 Chloride 109 H Carbon Dioxide 27 Anion Gap 4 L BUN 23 H Creatinine 0.8 Random Glucose 86 Calcium 8.3 L Magnesium 1.8 Active Medications Generic Name Dose Route Start Last Admin Trade Name Freq PRN Reason Stop Dose Admin Cyanocobalamin 1,000 mcg 02/23/18 14:00 02/28/18 09:37 Vitamin B12 - PO 1,000 mcg DAILY [facility]ITOPE Administration Escitalopram Oxalate 20 mg 02/23/18 15:00 04/09/18 09:37 Lexapro - PO 20 mg DAILY [facility]ITOPE Administration Folic Acid 1 mg 02/23/18 14:00 02/28/18 09:37 Folic Acid - PO 1 mg DAILY [facility]ITOPE Administration Magnesium Oxide 400 mg 02/23/18 22:00 02/28/18 09:37 Mag-Ox - PO 400 mg BID [facility]ITOPE Administration Multivit/Folic Acid/Iron 1 tab 02/24/18 10:00 02/28/18 09:38 Vitamins (Sjr) - PO 1 tab DAILY [facility]ITOPE Administration Thiamine HCl 100 mg 02/24/18 22:00 02/27/18 21:04 Vitamin B1 - PO 100 mg HS [facility]ITOPE Administration Trazodone HCl 50 mg 02/28/18 22:00 Desyrel - PO HS [facility]ITOPE Zolpidem Tartrate 5 mg 02/27/18 23:23 Ambien - PO HS PRN INSOMNIA ASSESSMENT/PLAN: This is a 67 yo m with PMH of EtOH abuse, Hep C, cirrhosis, depression, who presented to the ED in an intoxicated disorderly state, with an occipital scalp laceration. Acute EtOH intoxication, completed detox -Detox completed -thiamine, folate, vitamins, b12 -Dr Kohler consult -Patient will need rehab Occipital scalp laceration -CT head unremarkable for acute pathology -s/p repair with demetri -f/u in 2 weeks with PCP to remove demetri Smoker -recommend cessation FEN No fluids lyts stable regular diet Dispo: pending rehab to [place] Visit type - Emergency Visit Emergency Visit: Yes ED Registration Date: 02/22/18 Care time: The patient presented to the Emergency Department on the above date and was hospitalized for further evaluation of their emergent condition. - New Patient This patient is new to me today: No - Critical Care Critical Care patient: No
--- NOTE | 2018-02-28 18:22 | PN ---
Teaching Attending Note Name of Resident: Barney Gibson ATTENDING PHYSICIAN STATEMENT I saw and evaluated the patient. I reviewed the resident's note and discussed the case with the resident. I agree with the resident's findings and plan as documented. SUBJECTIVE: Patient has no complaints. OBJECTIVE: Vital Signs Period Temp Pulse Resp BP Sys/Suggs Pulse Ox Last 24 Hr 97.8 F-98.7 F 78-109 18-20 96-144/57-82 95-99 HEART: S1S2, RRR LUNGS: Clear ABDOMEN: Soft, non-tender, non-distended, normal BS EXTREMITIES: No edema Laboratory Results - last 24 hr 02/28/18 02/28/18 06:37 06:37 WBC 4.5 RBC 2.70 L Hgb 8.8 L Hct 26.4 L MCV 97.7 H MCH 32.6 MCHC 33.4 RDW 17.1 H Plt Count 143 MPV 9.5 Neutrophils % 53.6 Lymphocytes % 28.0 Monocytes % 15.0 H Eosinophils % 2.7 Basophils % 0.7 Sodium 140 Potassium 4.2 Chloride 109 H Carbon Dioxide 27 Anion Gap 4 L BUN 23 H Creatinine 0.8 Random Glucose 86 Calcium 8.3 L Magnesium 1.8 Current Medications Generic Name Dose Route Start Last Admin Trade Name Freq PRN Reason Stop Dose Admin Cyanocobalamin 1,000 mcg 02/23/18 14:00 02/28/18 09:37 Vitamin B12 - PO 1,000 mcg DAILY TEMITOPE Administration Escitalopram Oxalate 20 mg 02/23/18 15:00 02/28/18 09:37 Lexapro - PO 20 mg DAILY TEMITOPE Administration Folic Acid 1 mg 02/23/18 14:00 02/28/18 09:37 Folic Acid - PO 1 mg DAILY TEMITOPE Administration Magnesium Oxide 400 mg 02/23/18 22:00 02/28/18 09:37 Mag-Ox - PO 400 mg BID TEMITOPE Administration Multivit/Folic Acid/Iron 1 tab 02/24/18 10:00 02/28/18 09:38 Vitamins (Sjr) - PO 1 tab DAILY TEMITOPE Administration Thiamine HCl 100 mg 02/24/18 22:00 02/27/18 21:04 Vitamin B1 - PO 100 mg HS TEMITOPE Administration Trazodone HCl 50 mg 02/28/18 22:00 Desyrel - PO HS TEMITOPE Zolpidem Tartrate 5 mg 02/27/18 23:23 Ambien - PO HS PRN INSOMNIA ASSESSMENT AND PLAN: This is a 67 year old man with a history of cirrhosis, alcohol abuse, hepatitis C, depression who presented to the ED after falling and hitting his head while intoxicated. 1. Alcohol withdrawal, uncomplicated - Completed Librium detox 2. s/p fall with occipital scalp laceration - Laceration stapled in ED - Head CT negative 3. Pancytopenia, likely secondary to alcohol - Improved 4. Hypokalemia - Improved 5. Hypomagnesemia - Improving - Continue MagOx 6. Continuous alcohol dependence - Continue thiamine, folic acid, multivitamin 7. Nicotine dependence 8. Cirrhosis 9. Hepatitis C 10. Depression - Continue Lexapro, Trazodone 11. Disposition - Continue PT - today he ambulated 45' with rolling walker with unsteady gait - Patient is agreeable to subacute rehab
--- NOTE | 2018-02-28 18:28 | PN ---
S Progress Note (SOAP) Subjective: sedated, no complaints Objective: 03/01/18 14:30 Vital Signs - 24 hr 02/28/18 02/28/18 03/01/18 20:26 20:46 06:42 Temperature 98.2 F 98.7 F Pulse Rate 81 67 Respiratory 19 18 Rate Blood Pressure 104/56 101/61 O2 Sat by Pulse 96 Oximetry (%) 03/01/18 09:00 Temperature 98 F Pulse Rate 90 Respiratory 18 Rate Blood Pressure 97/61 O2 Sat by Pulse 100 Oximetry (%) labs reveiwd, a and ox3, poor sking rugor Assessment: 03/01/18 14:30 completed detox, medically stable but remaisn weak, dehydrated and sedated, not a candidate for inaptient rehab. consider outpatient when he is better [facility], he has been a patient at the [facility] in the past, may be best for him to return there
[2018-02-28] MEDS: THIAMINE HCL 100 MG TABLET (FP) PO SCH (21:26)
[2018-02-28] MEDS ORDERED: traZODone HCL 50 MG TABLET (FP) PO SCH (22:00)
[2018-03-01 08:59] LABS: BASO % 0.6 % (0-2.0); EOS % 2.8 % (0-4.5); HEMATOCRIT 26.1 % (35.4-49); HEMOGLOBIN 8.8 GM/dL (11.7-16.9); LYMPH % 24.4 % (8-40); MCH 32.9 pg (25.7-33.7); MCHC 33.6 g/dl (32.0-35.9); MEAN PLT VOLUME 9.7 fl (7.5-11.1); MONO % 17.5 % (3.8-10.2); NEUT % 54.7 % (42.8-82.8); PLATELET COUNT 155 K/MM3 (134-434); RBC 2.67 M/mm3 (4.00-5.60); WHITE BLOOD COUNT 4.4 K/mm3 (4.0-10.0)
[2018-03-01 09:19] LABS: ANION GAP 5 (8-16); BLOOD UREA NITROGEN 24 mg/dL (7-18); CALCIUM 8.7 mg/dL (8.5-10.1); CHLORIDE 107 mmol/L (98-107); CO2 28 mmol/L (21-32); CREATININE 0.9 mg/dL (0.7-1.3); GLUCOSE,RANDOM 92 mg/dL (74-106); POTASSIUM 4.4 mmol/L (3.5-5.1); SODIUM 140 mmol/L (136-145)
[2018-03-01] MEDS ORDERED: ESCITALOPRAM OXALATE 10 MG TABLET (FP) ONE (09:22)
[2018-03-01] MEDS ORDERED: PT OWN MED DRAWER 7, Y5N ONE (09:22)
[2018-03-01] MEDS: CYANOCOBALAMIN 1,000 MCG TABLET (FP) PO SCH (09:24)
[2018-03-01] MEDS: FOLIC ACID 1 MG TABLET (FP) PO SCH (09:24)
[2018-03-01] MEDS: MAGNESIUM OXIDE 400 MG TABLET (FP) PO SCH ×2 (09:24→21:30)
[2018-03-01] MEDS: PRENATAL VITAMINS W/ FOLIC ACID TABLET (FP) PO SCH (09:24)
[2018-03-01] MEDS: ESCITALOPRAM OXALATE 20 MG TABLET (FP) PO SCH (09:25)
--- NOTE | 2018-03-01 13:50 | PN ---
S Progress Note (SOAP) Subjective: sleeping, no complaints Objective: 03/01/18 13:50 Vital Signs - 8 hr 03/01/18 03/01/18 06:42 09:00 Temperature 98.7 F 98 F Pulse Rate 67 90 Respiratory 18 18 Rate Blood Pressure 101/61 97/61 O2 Sat by Pulse 100 Oximetry (%) 03/01/18 14:32 Laboratory Results - last 24 hr 03/01/18 03/01/18 07:50 07:50 WBC 4.4 RBC 2.67 L Hgb 8.8 L Hct 26.1 L MCV 98.0 H MCH 32.9 MCHC 33.6 RDW 17.0 H Plt Count 155 MPV 9.7 Neutrophils % 54.7 Lymphocytes % 24.4 Monocytes % 17.5 H Eosinophils % 2.8 Basophils % 0.6 Sodium 140 Potassium 4.4 Chloride 107 Carbon Dioxide 28 Anion Gap 5 L BUN 24 H Creatinine 0.9 Random Glucose 92 Calcium 8.7 macrocytic anemia, elevated bun Assessment: 03/01/18 14:33 anemia and dehydrated, cotinue vitamin supplementation and fluids, ensure
--- NOTE | 2018-03-01 16:15 | PN ---
Physical Exam: SUBJECTIVE: Patient seen and examined No acute events overnight. Patient feels well. Wants to go home. Continues to be unstable with PT. OBJECTIVE: Vital Signs Period Temp Pulse Resp BP Sys/Suggs Pulse Ox Last 24 Hr 98 F-98.7 F 67-90 18-19 97-104/56-61 96-100 GENERAL: Awake, alert, and fully oriented, in no acute distress. HEAD: Normal with no signs of trauma. +Scalp laceration with demetri EYES: Pupils equal, round and reactive to light, extraocular movements intact, sclera anicteric, conjunctiva clear. No lid lag. EARS, NOSE, THROAT: Moist mucous membranes. NECK: Normal range of motion, supple LUNGS: Breath sounds equal, clear to auscultation bilaterally. HEART: Regular rate and rhythm, normal S1 and S2, grade 3 systolic murmur ABDOMEN: Soft, nontender, not distended, normoactive bowel sounds, no guarding, no rebound, no masses. MUSCULOSKELETAL: No CVA tenderness. UPPER EXTREMITIES: 2+ pulses, warm, well-perfused. No cyanosis. No clubbing. No peripheral edema. LOWER EXTREMITIES: 2+ pulses, warm, well-perfused. No calf tenderness. No peripheral edema. NEUROLOGICAL: Cranial nerves II-XII intact. Normal speech. PSYCHIATRIC: Cooperative. Good eye contact. Appropriate mood and affect. SKIN: Warm, dry Laboratory Results - last 24 hr 03/01/18 03/01/18 07:50 07:50 WBC 4.4 RBC 2.67 L Hgb 8.8 L Hct 26.1 L MCV 98.0 H MCH 32.9 MCHC 33.6 RDW 17.0 H Plt Count 155 MPV 9.7 Neutrophils % 54.7 Lymphocytes % 24.4 Monocytes % 17.5 H Eosinophils % 2.8 Basophils % 0.6 Sodium 140 Potassium 4.4 Chloride 107 Carbon Dioxide 28 Anion Gap 5 L BUN 24 H Creatinine 0.9 Random Glucose 92 Calcium 8.7 Active Medications Generic Name Dose Route Start Last Admin Trade Name Freq PRN Reason Stop Dose Admin Cyanocobalamin 1,000 mcg 02/23/18 14:00 03/01/18 09:24 Vitamin B12 - PO 1,000 mcg DAILY TEMITOPE Administration Escitalopram Oxalate 15 mg 03/02/18 10:00 Lexapro - PO DAILY TEMITOPE Folic Acid 1 mg 02/23/18 14:00 03/01/18 09:24 Folic Acid - PO 1 mg DAILY TEMITOPE Administration Magnesium Oxide 400 mg 02/23/18 22:00 03/01/18 09:24 Mag-Ox - PO 400 mg BID TEMITOPE Administration Multivit/Folic Acid/Iron 1 tab 02/24/18 10:00 03/01/18 09:24 Vitamins (Sjr) - PO 1 tab DAILY TEMITOPE Administration Thiamine HCl 100 mg 02/24/18 22:00 02/28/18 21:26 Vitamin B1 - PO 100 mg HS TEMITOPE Administration Trazodone HCl 25 mg 03/01/18 22:00 Desyrel - PO HS TEMITOPE ASSESSMENT/PLAN: This is a 67 yo m with PMH of EtOH abuse, Hep C, cirrhosis, depression, who presented to the ED in an intoxicated disorderly state, with an occipital scalp laceration. Acute EtOH intoxication, completed detox -Detox completed -thiamine, folate, vitamins, b12 -Dr Kohler consult Occipital scalp laceration -CT head unremarkable for acute pathology -s/p repair with demetri -f/u in 2 weeks with PCP to remove demetri Smoker -recommend cessation FEN No fluids lyts stable regular diet Dispo: pending rehab, patient walked 80 feet with PT, still unstable Visit type - Emergency Visit Emergency Visit: Yes ED Registration Date: 02/22/18 Care time: The patient presented to the Emergency Department on the above date and was hospitalized for further evaluation of their emergent condition. - New Patient This patient is new to me today: No - Critical Care Critical Care patient: No
--- NOTE | 2018-03-01 17:14 | PN ---
Teaching Attending Note Name of Resident: Barney Gibson ATTENDING PHYSICIAN STATEMENT I saw and evaluated the patient. I reviewed the resident's note and discussed the case with the resident. I agree with the resident's findings and plan as documented. SUBJECTIVE: No complaints. OBJECTIVE: Vital Signs Period Temp Pulse Resp BP Sys/Suggs Pulse Ox Last 24 Hr 98 F-98.7 F 67-90 18-19 97-104/56-61 96-100 HEART: S1S2, RRR LUNGS: Clear ABDOMEN: Soft, non-tender, non-distended, normal BS EXTREMITIES: No edema Laboratory Results - last 24 hr 03/01/18 03/01/18 07:50 07:50 WBC 4.4 RBC 2.67 L Hgb 8.8 L Hct 26.1 L MCV 98.0 H MCH 32.9 MCHC 33.6 RDW 17.0 H Plt Count 155 MPV 9.7 Neutrophils % 54.7 Lymphocytes % 24.4 Monocytes % 17.5 H Eosinophils % 2.8 Basophils % 0.6 Sodium 140 Potassium 4.4 Chloride 107 Carbon Dioxide 28 Anion Gap 5 L BUN 24 H Creatinine 0.9 Random Glucose 92 Calcium 8.7 Current Medications Generic Name Dose Route Start Last Admin Trade Name Freq PRN Reason Stop Dose Admin Cyanocobalamin 1,000 mcg 02/23/18 14:00 03/01/18 09:24 Vitamin B12 - PO 1,000 mcg DAILY TEMITOPE Administration Escitalopram Oxalate 15 mg 03/02/18 10:00 Lexapro - PO DAILY TEMITOPE Folic Acid 1 mg 02/23/18 14:00 03/01/18 09:24 Folic Acid - PO 1 mg DAILY TEMITOPE Administration Magnesium Oxide 400 mg 02/23/18 22:00 03/01/18 09:24 Mag-Ox - PO 400 mg BID TEMITOPE Administration Multivit/Folic Acid/Iron 1 tab 02/24/18 10:00 03/01/18 09:24 Vitamins (Sjr) - PO 1 tab DAILY TEMITOPE Administration Thiamine HCl 100 mg 02/24/18 22:00 02/28/18 21:26 Vitamin B1 - PO 100 mg HS TEMITOPE Administration Trazodone HCl 25 mg 03/01/18 22:00 Desyrel - PO HS TEMITOPE ASSESSMENT AND PLAN: This is a 67 year old man with a history of cirrhosis, alcohol abuse, hepatitis C, depression who presented to the ED after falling and hitting his head while intoxicated. 1. Alcohol withdrawal, uncomplicated - Completed Librium detox 2. s/p fall with occipital scalp laceration - Laceration stapled in ED - Head CT negative 3. Pancytopenia, likely secondary to alcohol - Improved 4. Hypokalemia - Improved 5. Hypomagnesemia - Continue MagOx 6. Continuous alcohol dependence - Continue thiamine, folic acid, multivitamin 7. Nicotine dependence 8. Cirrhosis 9. Hepatitis C 10. Depression - Continue Lexapro, Trazodone 11. Disposition - Continue PT - today he ambulated 80' with rolling walker with unsteady gait with contact guard of 2 - Patient is agreeable to subacute rehab
[2018-03-01] MEDS: THIAMINE HCL 100 MG TABLET (FP) PO SCH (21:30)
[2018-03-01] MEDS ORDERED: traZODone HCL 50 MG TABLET (FP) PO SCH (22:00)
[2018-03-02 06:15] VITALS: TEMP 98
[2018-03-02] MEDS ORDERED: PT OWN MED DRAWER 7, Y5N ONE (09:28)
[2018-03-02] MEDS: MAGNESIUM OXIDE 400 MG TABLET (FP) PO SCH (09:31)
[2018-03-02] MEDS: FOLIC ACID 1 MG TABLET (FP) PO SCH (09:31)
[2018-03-02] MEDS: PRENATAL VITAMINS W/ FOLIC ACID TABLET (FP) PO SCH (09:31)
[2018-03-02] MEDS: CYANOCOBALAMIN 1,000 MCG TABLET (FP) PO SCH (09:31)
[2018-03-02] MEDS ORDERED: ESCITALOPRAM OXALATE 10 MG TABLET (FP) PO SCH (10:00)
[2018-03-02 12:28] VITALS: BP 106/55; PULSE 95
--- NOTE | 2018-03-02 15:23 | PN ---
Physical Exam: SUBJECTIVE: Patient seen and examined No acute events overnight. Patient wants to go home. Continues to be unstable with PT. OBJECTIVE: Vital Signs Period Temp Pulse Resp BP Sys/Suggs Pulse Ox Last 24 Hr 97.3 F-98.0 F 71-95 18-20 104-118/55-71 100 GENERAL: Awake, alert, and fully oriented, in no acute distress. HEAD: Normal with no signs of trauma. +Scalp laceration with demetri EYES: Pupils equal, round and reactive to light, extraocular movements intact, sclera anicteric, conjunctiva clear. No lid lag. EARS, NOSE, THROAT: Moist mucous membranes. NECK: Normal range of motion, supple LUNGS: Breath sounds equal, clear to auscultation bilaterally. HEART: Regular rate and rhythm, normal S1 and S2, grade 3/6 systolic murmur ABDOMEN: Soft, nontender, not distended, normoactive bowel sounds, no guarding, no rebound, no masses. MUSCULOSKELETAL: No CVA tenderness. UPPER EXTREMITIES: 2+ pulses, warm, well-perfused. No cyanosis. No clubbing. No peripheral edema. LOWER EXTREMITIES: 2+ pulses, warm, well-perfused. No calf tenderness. No peripheral edema. NEUROLOGICAL: Cranial nerves II-XII intact. Normal speech. PSYCHIATRIC: Cooperative. Good eye contact. Appropriate mood and affect. SKIN: Warm, dry Active Medications Generic Name Dose Route Start Last Admin Trade Name Primoq PRN Reason Stop Dose Admin Cyanocobalamin 1,000 mcg 02/23/18 14:00 03/02/18 09:31 Vitamin B12 - PO 1,000 mcg DAILY TEMITOPE Administration Escitalopram Oxalate 15 mg 03/02/18 10:00 03/02/18 09:32 Lexapro - PO 15 mg DAILY TEMITOPE Administration Folic Acid 1 mg 02/23/18 14:00 03/02/18 09:31 Folic Acid - PO 1 mg DAILY TEMITOPE Administration Magnesium Oxide 400 mg 02/23/18 22:00 03/02/18 09:31 Mag-Ox - PO 400 mg BID TEMITOPE Administration Multivit/Folic Acid/Iron 1 tab 02/24/18 10:00 03/02/18 09:31 Vitamins (Sjr) - PO 1 tab DAILY TEMITOPE Administration Thiamine HCl 100 mg 02/24/18 22:00 03/01/18 21:30 Vitamin B1 - PO 100 mg HS TEMITOPE Administration Trazodone HCl 25 mg 03/01/18 22:00 03/01/18 21:31 Desyrel - PO 25 mg HS TEMTIOPE Administration ASSESSMENT/PLAN: This is a 67 yo m with PMH of EtOH abuse, Hep C, cirrhosis, depression, who presented to the ED in an intoxicated disorderly state, with an occipital scalp laceration. Acute EtOH intoxication, completed detox -Detox completed -thiamine, folate, vitamins, b12 -Dr Kohler consult Occipital scalp laceration -CT head unremarkable for acute pathology -s/p repair with demetri -f/u after dc with PCP to remove demetri Smoker -recommend cessation FEN No fluids lytes stable regular diet Visit type - Emergency Visit Emergency Visit: Yes ED Registration Date: 02/22/18 Care time: The patient presented to the Emergency Department on the above date and was hospitalized for further evaluation of their emergent condition. - New Patient This patient is new to me today: No - Critical Care Critical Care patient: No
--- NOTE | 2018-03-02 16:19 | DS ---
Physical Exam: Selected Entries 03/01/18 03/02/18 21:00 06:13 Temperature 98.0 F Pulse Rate 71 Respiratory 20 Rate Blood Pressure 118/64 O2 Sat by Pulse 100 Oximetry (%) Oxygen Delivery Room Air Method Laboratory Tests 02/23/18 02/23/18 02/24/18 07:45 07:45 06:45 WBC Hgb Hct Plt Count INR 1.16 H Sodium Potassium Chloride Carbon Dioxide BUN Creatinine Random Glucose AST ALT Vitamin B12 701 Serum Folate 12 02/24/18 03/01/18 03/01/18 06:45 07:50 07:50 WBC 4.4 Hgb 8.8 L Hct 26.1 L Plt Count 155 INR Sodium 140 Potassium 4.4 Chloride 107 Carbon Dioxide 28 BUN 24 H Creatinine 0.9 Random Glucose 92 AST 104 H ALT 41 Vitamin B12 Serum Folate HEAD CT- No acute intracranial hemorrhage, chronic right maxillary sinus disease HOSPITAL COURSE: Date of Admission:02/22/18 Date of Discharge: 03/02/18 This is a 67 yo m with PMH of EtOH abuse, Hep C, cirrhosis and depression who presented to the ED in an intoxicated disorderly state, with an occipital scalp laceration. Patient had demetri placed in the ER and admitted for acute alcohol withdrawal. Patient completed alcohol detox with the librium protocol. Patient was unstable for discharge 2/ to instability while walking with PT. On 03/02, patient decided to sign out AMA. Risks were explained to the patient. Patient expressed understanding of those risks and decided to leave against medical advice. Minutes to complete discharge: 40 <Barney Gibson - Last Filed: 03/02/18 16:37> Physical Exam: Patient wants to go home but unstable on his feet. Patient wants to sign against medical advice. Agree with the resident's note. Vital Signs Temperature 98.0 F 03/02/18 06:13 Pulse Rate 95 H 03/02/18 10:00 Respiratory Rate 18 03/02/18 10:00 Blood Pressure 106/55 03/02/18 10:00 O2 Sat by Pulse Oximetry (%) 100 03/01/18 21:00 CBCD WBC 4.4 K/mm3 (4.0-10.0) 03/01/18 07:50 RBC 2.67 M/mm3 (4.00-5.60) L 03/01/18 07:50 Hgb 8.8 GM/dL (11.7-16.9) L 03/01/18 07:50 Hct 26.1 % (35.4-49) L 03/01/18 07:50 MCV 98.0 fl (80-96) H 03/01/18 07:50 MCHC 33.6 g/dl (32.0-35.9) 03/01/18 07:50 RDW 17.0 % (11.9-15.9) H 03/01/18 07:50 Plt Count 155 K/MM3 (134-434) 03/01/18 07:50 MPV 9.7 fl (7.5-11.1) 03/01/18 07:50 CMP Sodium 140 mmol/L (136-145) 03/01/18 07:50 Potassium 4.4 mmol/L (3.5-5.1) 03/01/18 07:50 Chloride 107 mmol/L (98-107) 03/01/18 07:50 Carbon Dioxide 28 mmol/L (21-32) 03/01/18 07:50 Anion Gap 5 (8-16) L 03/01/18 07:50 BUN 24 mg/dL (7-18) H 03/01/18 07:50 Creatinine 0.9 mg/dL (0.7-1.3) 03/01/18 07:50 Creat Clearance w eGFR > 60 (>60) 02/24/18 06:45 Random Glucose 92 mg/dL (74-106) 03/01/18 07:50 Calcium 8.7 mg/dL (8.5-10.1) 03/01/18 07:50 Total Bilirubin 0.7 mg/dL (0.2-1.0) D 02/24/18 06:45 AST 104 U/L (15-37) H 02/24/18 06:45 ALT 41 U/L (12-78) 02/24/18 06:45 Alkaline Phosphatase 134 U/L (45-117) H D 02/24/18 06:45 Total Protein 6.9 g/dl (6.4-8.2) 02/24/18 06:45 Albumin 2.6 g/dl (3.4-5.0) L 02/24/18 06:45 Home Medications Medication Instructions Recorded Aspirin 81 mg PO DAILY 02/22/18 Escitalopram Oxalate 20 mg PO DAILY 02/22/18 Trazodone HCl 50 mg PO HS PRN 02/22/18 <Beto Westfall - Last Filed: 03/02/18 17:28> Discharge Summary Reason For Visit: ALCOHOLIC INTOXICATION,INJURY OF HEAD Current Active Problems Fall (Acute) Head injury (Acute) Alcohol dependence with uncomplicated withdrawal (Chronic) Anemia (Chronic) - Home Medications Comprehensive Discharge Medication List: Ambulatory Orders Aspirin 81 mg PO DAILY 02/22/18 Escitalopram Oxalate 20 mg PO DAILY 02/22/18 Trazodone HCl 50 mg PO HS PRN 02/22/18 <Barney Gibson - Last Filed: 03/02/18 16:37> - Home Medications Comprehensive Discharge Medication List: Ambulatory Orders Aspirin 81 mg PO DAILY 02/22/18 Escitalopram Oxalate 20 mg PO DAILY 02/22/18 Trazodone HCl 50 mg PO HS PRN 02/22/18 <Beto Westfall - Last Filed: 03/02/18 17:28> Condition: Stable - Instructions Diet, Activity, Other Instructions: You were in the hospital for alcohol withdrawal. You fell and had 11 demetri placed in your scalp. Please follow up with your primary care doctor within 1 week. A referral has been given to you for the resident clinic with Dr. Tineo if you do not have a primary care provider. You will need your demetri removed in 1 week (03/08). Continue your home medications as prescribed. If you have chest pain, shortness of breath, or any new/worsening symptoms please come back to the hospital immediately. Referrals: Arley Tineo MD [Staff Physician] - Sahil Kohler MD [Staff Physician] - Disposition: AGAINST MEDICAL ADVICE This patient is new to me today: No Emergency Visit: Yes ED Registration Date: 02/22/18 Care time: The patient presented to the Emergency Department on the above date and was hospitalized for further evaluation of their emergent condition. Critical Care patient: No - Discharge Referral Referred to [facility] Yes Physician Referral: Danial North MD ([facility]) <Barney Gibson - Last Filed: 03/02/18 16:37>
== END 2018-03-02 16:24 | disposition left against medical advice (07) | DRG 770 ==
LOC: JER 19:32 → JERBED 02-22 08:21 → OBSVTOIN 02-22 11:35 → J6S 02-22 15:47
PROVIDERS: ADMIT Internal Medicine; ATTEND Internal Medicine
PROC: HZ2ZZZZ Detoxification Services for Substance Abuse Treatment (ICD-10-PCS; principal; 2018-02-22)
DX: F10.230 Alcohol dependence with withdrawal, uncomplicated (principal); S01.01XA Laceration without foreign body of scalp, initial encounter; S09.90XA Unspecified injury of head, initial encounter; F17.200 Nicotine dependence, unspecified, uncomplicated; K70.30 Alcoholic cirrhosis of liver without ascites; B19.20 Unspecified viral hepatitis C without hepatic coma; F32.9 Major depressive disorder, single episode, unspecified; D64.9 Anemia, unspecified; E83.42 Hypomagnesemia; E87.6 Hypokalemia; D61.818 Other pancytopenia; R26.81 Unsteadiness on feet; Z71.41 Alcohol abuse counseling and surveillance of alcoholic; W18.30XA Fall on same level, unspecified, initial encounter; Y93.9 Activity, unspecified; Y92.89 Other specified places as the place of occurrence of the external cause
CPT/HCPCS: 36415; 70450-TC; 80048; 80053; 82607; 82746; 83735; 84100; 85025; 85027; 85610; 93971-TC; 97116-GP; 97161-GP; 99284-25; G0378; J0735; J7030